=== PATIENT | female | born 1955 | race Caucasian/White ===

== ENCOUNTER → 2017-09-09 06:51 | Outpatient (CLI) | payer OTHER, SELFPAY ==
--- NOTE | 2017-09-09 14:52 | PFTCOMP ---
COMPLETE PULMONARY FUNCTION TEST INTERPRETATION Brief HPI: Patient is a 62 year old female, currently under the care of Maria Teresa Koehler, who presents to [facility] for complete pulmonary function tests secondary to diagnosis of wheezing. Respiratory therapist reports good effort and reproducible results. Interpretation: Forced expiration spirometry shows no large airways obstructive ventilatory defect with an FEV1 of 116 % predicted. There is no significant bronchodilator response by ATS criteria. Spirograms are of good quality and plateau normally. The respiratory flow volume loop shows a normal pattern. Lung volumes by body plethysmography show an elevated total lung capacity at 6.12 L, 120 % predicted. All other lung volumes are increased symmetrically. Diffusion capacity by carbon monoxide is normal at 86 % predicted. The airway resistance is normal. No previous pulmonary function tests were available for review. Impression: These pulmonary function tests are grossly within normal limits. There is mild physiologic hyperinflation, without any signs of obstruction noted.
== END ==
PROVIDERS: Family Provider Family Medicine; PCP Family Medicine; Visit Provider Nurse Practitioner Acute Care
DX: R06.2 Wheezing (principal)
CPT/HCPCS: 94060; 94726; 94729

== ENCOUNTER → 2018-05-28 08:02 | Outpatient (CLI) | payer OTHER, SELFPAY ==
--- NOTE | 2018-05-28 08:05 | BI_ITS ---
MAMMOGRAPHY - BILATERAL SCREENING REASON FOR EXAM: Female, 63 years old. Routine annual screening examination. PERTINENT HISTORY: Aunt with breast cancer. TECHNIQUE: Digital bilateral breast juvenal (3D mammographic acquisition) in the CC and MLO projections. 2-D mediolateral oblique (MLO) and craniocaudad (CC) views of both breasts were obtained. CAD: Full Field Digital Mammography with Computer Added Detection was performed. COMPARISON: Comparison is made with prior study dated November 28, 2016 and July 06, 2015. FINDINGS: Breast Composition: There are scattered areas of fibroglandular density. There are no dominant masses or suspicious calcifications. No other significant abnormalities are identified. There has been no significant change since the prior study. BI/SCREENING MAMM (CAD), BILAT IMPRESSION: Stable bilateral screening mammogram. Yearly follow-up mammogram recommended. (A) ASSESSMENT CATEGORY: BIRADS Category 1: Negative. A letter regarding these results will be sent to the patient by the facility within 30 days. Approximately 10% of breast cancers are not detected by mammography. A normal mammogram should not delay biopsy of a clinically suspicious abnormality. [id number] Electronically Signed: Juan Pablo Lucas MD at 11:20 EST Tel [phone], Service support ,
== END ==
PROVIDERS: Family Provider Family Medicine; PCP Family Medicine; Visit Provider Nurse Practitioner Adult Health
DX: Z12.31 Encounter for screening mammogram for malignant neoplasm of breast (principal)
CPT/HCPCS: 77063; 77067

== ENCOUNTER → 2018-11-06 | Outpatient (CLI) | payer OTHER, SELFPAY ==
[2018-11-05 16:49] VITALS: BMI 24.7
--- NOTE | 2018-11-06 08:14 | RAD_ITS ---
STUDY: X-RAY - CERVICAL SPINE REASON FOR EXAM: Female, 63 years old. Chronic neck pain. TECHNIQUE: 4 view(s) of the cervical spine were obtained. COMPARISON: None FINDINGS: There are degenerative changes of the anterior atlantoaxial articulation. Normal odontoid process. Normal cervical lordosis. . There is multi-level degenerative disc disease with multilevel disc space narrowing. There is no evidence of acute fracture or loss of vertebral axial height. There is maintenance of normal alignment. The soft tissue structures are unremarkable. RAD/Cerv Spine 2 or 3 Views IMPRESSION: Degenerative changes of the cervical spine. Electronically Signed: James Guerrero DO at 23:22 EDT Tel [phone], Service support ,
--- NOTE | 2018-11-06 08:14 | RAD_ITS ---
STUDY: X-RAY - LUMBAR SPINE REASON FOR EXAM: Female, 63 years old. Degenerative disc disease. TECHNIQUE: 5 view(s) of the lumbar spine were obtained. COMPARISON: None FINDINGS: Normal lumbar lordosis. There is no substantial scoliosis. There is a normal alignment of the vertebrae. There is multilevel endplate spondylosis of the lumbar vertebrae. There is multi-level degenerative disc disease with multi-level disc space narrowing. There is no acute fracture, dislocation or destructive osseous pathology. There is no demonstrated spondylolysis of the pars interarticulares. There is atherosclerotic calcification of the abdominal aorta without a demonstrated aneurysm. RAD/L/S Spine Min 4 Views IMPRESSION: Degenerative changes of the spine, as detailed above. Electronically Signed: James Guerrero DO at 23:23 EDT Tel [phone], Service support ,
== END | disposition home or self-care (01) ==
LOC: RAD 08:14
PROVIDERS: Family Provider Family Medicine; PCP Family Medicine; Referring Provider Chiropractor; Visit Provider Chiropractor
DX: M99.01 Segmental and somatic dysfunction of cervical region (principal); M99.03 Segmental and somatic dysfunction of lumbar region
CPT/HCPCS: 72040; 72110

== ENCOUNTER → 2019-04-23 09:05 | Outpatient (CLI) | payer OTHER, SELFPAY ==
[2018-11-25 08:10] VITALS: BMI 24.7
[2019-04-23 10:30] LABS: Erythrocyte Sedimentation Rate 12 mm/hr (0-30)
[2019-04-23 10:32] LABS: Absolute Lymphocyte Count 1.17 X10^3/uL (0.83-4.51); Basophil# 0.03 X10^3/uL; Basophil% 0.6 % (0-1); Eosinophil# 0.09 X10^3/uL; Eosinophils% 1.9 % (0-5); Hemoglobin 13.7 g/dL (12.0-15.0); Lymphocyte # 1.17 X10^3/ul (4.0); Lymphocyte % 25.2 % (19-41); Mean Corp Hgb Conc 31.9 g/dL (32-36); Mean Corpuscular Hgb 30.3 pg (27.0-32.0); Mean Corpuscular Volume 95.1 fL (81-99); Mean Platelet Vol. 9.4 fl (6.2-12.0); Monocyte# 0.37 X10^3/uL; NRBC Flagged by Analyzer 0 % (0-5); Neutrophil # 2.98 X10^3/uL (2.7-7.7); Neutrophil % 64.1 % (47-70); Platelet Count 253 K/mm3 (150-450); RBC Distribution Width CV 12.2 % (11.6-14.6); RBC Distribution Width SD 42.5 fl (35.1-43.9); Red Blood Count 4.52 M/mm3 (4.2-5.4); White Blood Count 4.7 K/mm3 (4.4-11.0)
[2019-04-23 10:45] LABS: AST(SGOT) 26 U/L (15-37); Alanine Aminotransfer ALT/SGPT 30 U/L (13-56); Albumin, Serum 3.7 g/dL (3.2-5.0); Alkaline Phosphatase 77 U/L (45-117); Anion Gap 7 (5-15); BUN 12 mg/dL (7-18); BUN/Creat Ratio 13.1 RATIO (10-20); CRP 3.25 mg/L (0.0-3.0); Chloride 107 mmol/L (98-107); Creatinine, Serum 0.92 mg/dL (0.55-1.02); EST Glomerular Filtration Rate 66 mL/min (>60); Est Glom Filt Rate - Afr Amer 80 mL/min (>60); Ferritin 46 ng/mL (8-252); Globulin 3.7 g/dL (2.2-4.2); Glucose 72 mg/dL (74-106); Iron 101 ug/dL (50-170); Protein, Total 7.4 g/dL (6.4-8.2); Sodium Level 142 mmol/L (136-145); Thyroid Stim Hormone (TSH) 2.87 uIU/mL (0.358-3.74)
[2019-04-23 11:07] LABS: Vitamin B12 482 pg/mL (211-911); Vitamin D,25 Hydroxy 35.5 ng/mL (29.95-100.01)
[2019-04-27 14:30] LABS: ANTINUCLEAR ANTIBODIES DIRECT Negative (Negative)
== END ==
PROVIDERS: Family Provider Family Medicine; PCP Family Medicine; Referring Provider Family Medicine; Visit Provider Family Medicine
DX: G62.9 Polyneuropathy, unspecified (principal)
CPT/HCPCS: 36415; 80053; 82306; 82607; 82728; 82746; 83540; 84443; 85025; 85652; 86038; 86140

== ENCOUNTER → 2020-02-01 16:23 | Outpatient (CLI) | payer OTHER, SELFPAY ==
[2020-01-06 16:38] VITALS: BMI 24.7
--- NOTE | 2020-02-01 16:26 | RAD_ITS ---
STUDY: X-RAY - LEFT SHOULDER REASON FOR EXAM: Female, 64 years old. shoulder pain, no injury, pain with movement TECHNIQUE: 4 view(s) of the shoulder. COMPARISON: None. FINDINGS: Normal glenohumeral articulation. Normal acromioclavicular joint. Normal acromion. Normal humeral head and visualized proximal humerus. The soft tissue structures are unremarkable. Normal visualized pulmonary apex. RAD/Shoulder min 2 Views IMPRESSION: Normal x-ray examination of the shoulder. Electronically Signed: Michael Silva MD at 23:55 EDT , Service support ,
--- NOTE | 2020-02-01 16:30 | RAD_ITS ---
STUDY: X-RAY - RIGHT SHOULDER REASON FOR EXAM: Female, 64 years old. shoulder pain, no injury TECHNIQUE: 4 view(s) of the shoulder. COMPARISON: None. FINDINGS: Normal glenohumeral articulation. Normal acromioclavicular joint. Normal acromion. Normal humeral head and visualized proximal humerus. The soft tissue structures are unremarkable. Normal visualized pulmonary apex. RAD/Shoulder min 2 Views IMPRESSION: Normal x-ray examination of the shoulder. Electronically Signed: Michael Silva MD at 23:56 EDT , Service support ,
== END ==
PROVIDERS: PCP Family Medicine; Referring Provider Nurse Practitioner Family; Visit Provider Nurse Practitioner Family
DX: M25.512 Pain in left shoulder (principal); M25.511 Pain in right shoulder
CPT/HCPCS: 73030

== ENCOUNTER → 2020-02-17 | Outpatient (CLI) | payer OTHER, SELFPAY ==
[2020-01-06 16:38] VITALS: BMI 24.7
== END | disposition home or self-care (01) ==
LOC: MTDU 10:17
PROVIDERS: PCP Family Medicine; Referring Provider Family Medicine; Visit Provider Family Medicine
DX: Z20.828 Contact with and (suspected) exposure to other viral communicable diseases (principal)
CPT/HCPCS: 87635; 94799; U0003

== ENCOUNTER → 2020-03-02 09:33 | Outpatient (CLI) | payer OTHER, SELFPAY ==
[2020-01-06 16:38] VITALS: BMI 24.7
[2020-03-02 10:30] LABS: Anion Gap 3 (5-15); BUN 11 mg/dL (7-18); BUN/Creat Ratio 15.2 RATIO (10-20); Calcium,Total 9.3 mg/dL (8.5-10.1); Chloride 108 mmol/L (98-107); Cholesterol 191 mg/dL (200); Creatinine, Serum 0.73 mg/dL (0.55-1.02); EST Glomerular Filtration Rate 86 mL/min (>60); Est Glom Filt Rate - Afr Amer 104 mL/min (>60); Glucose 82 mg/dL (74-106); High Density Lipoprotein 79 mg/dL; Sodium Level 140 mmol/L (136-145); Triglycerides 86 mg/dL; Very Low Density Lipoprotein 17 mg/dL (5-40)
== END ==
PROVIDERS: PCP Family Medicine; Referring Provider Family Medicine; Visit Provider Family Medicine
DX: Z00.00 Encounter for general adult medical examination without abnormal findings (principal)
CPT/HCPCS: 36415; 80048; 80061; 82306

== ENCOUNTER → 2020-03-29 16:29 | Outpatient (CLI) | payer OTHER, SELFPAY ==
[2020-01-06 16:38] VITALS: BMI 24.7
--- NOTE | 2020-03-29 16:31 | BI_ITS ---
MAMMOGRAPHY - BILATERAL SCREENING REASON FOR EXAM: Female, 64 years old. Routine annual screening examination. PERTINENT HISTORY: Aunt with breast cancer. TECHNIQUE: Digital bilateral breast jason (3D mammographic acquisition) in the CC and MLO projections. 2-D mediolateral oblique (MLO) and craniocaudad (CC) views of both breasts were obtained. CAD: Full Field Digital Mammography with Computer Added Detection was performed. COMPARISON: Comparison is made with prior study dated 05/28/2018 and 11/28/2016. FINDINGS: Breast Composition: There are scattered areas of fibroglandular density. There are no dominant masses or suspicious calcifications. No other significant abnormalities are identified. There has been no significant change since the prior study. BI/SCREEN MAMM (CAD) W/JASON BILAT IMPRESSION: Stable bilateral screening mammogram. Yearly follow-up mammogram recommended. (A) ASSESSMENT CATEGORY: BIRADS Category 1: Negative. A letter regarding these results will be sent to the patient by the facility within 30 days. Approximately 10% of breast cancers are not detected by mammography. A normal mammogram should not delay biopsy of a clinically suspicious abnormality. [id number] Electronically Signed: Juan Pablo Lucas, at 8:02 EDT , Service support ,
== END ==
PROVIDERS: PCP Family Medicine; Referring Provider Family Medicine; Visit Provider Family Medicine
DX: Z12.31 Encounter for screening mammogram for malignant neoplasm of breast (principal)
CPT/HCPCS: 77063; 77067

== ENCOUNTER → 2020-08-04 | Outpatient (CLI) | payer OTHER, SELFPAY ==
[2020-01-06 16:38] VITALS: BMI 24.7
== END | disposition home or self-care (01) ==
PROVIDERS: PCP Family Medicine; Referring Provider Family Medicine; Visit Provider Family Medicine
DX: U07.1 COVID-19 (principal)
CPT/HCPCS: 87635; U0005; U0003

== ENCOUNTER → 2021-04-12 09:08 | Outpatient (CLI) | payer OTHER, SELFPAY ==
[2021-04-12 10:03] LABS: Hemoglobin 13.3 g/dL (12.0-15.0); Mean Corp Hgb Conc 32.4 g/dL (32-36); Mean Corpuscular Hgb 30.9 pg (27.0-32.0); Mean Corpuscular Volume 95.3 fL (81-99); Mean Platelet Vol. 9.5 fl (6.2-12.0); Platelet Count 268 K/mm3 (150-450); RBC Distribution Width CV 12.4 % (11.6-14.6); RBC Distribution Width SD 43.2 fl (35.1-43.9); White Blood Count 5.7 K/mm3 (4.4-11.0)
[2021-04-12 10:43] LABS: ALB/GLOB Ratio 0.8 RATIO (0.9-2.4); AST(SGOT) 24 U/L (15-37); Alanine Aminotransfer ALT/SGPT 25 U/L (13-56); Albumin, Serum 3.4 g/dL (3.2-5.0); Alkaline Phosphatase 74 U/L (45-117); Anion Gap 3 (5-15); BUN 16 mg/dL (7-18); BUN/Creat Ratio 21.6 RATIO (10-20); Calcium,Total 9.2 mg/dL (8.5-10.1); Chloride 107 mmol/L (98-107); Cholesterol 213 mg/dL (200); Creatinine, Serum 0.74 mg/dL (0.55-1.02); EST Glomerular Filtration Rate 84 mL/min (>60); Est Glom Filt Rate - Afr Amer 101 mL/min (>60); Globulin 4.1 g/dL (2.2-4.2); Glucose 84 mg/dL (74-106); High Density Lipoprotein 76 mg/dL; Potassium 4.4 mmol/L (3.5-5.1); Protein, Total 7.5 g/dL (6.4-8.2); Rheumatoid Factor < 10.0 IU/mL (<15); Sodium Level 138 mmol/L (136-145); Triglycerides 66 mg/dL; Very Low Density Lipoprotein 13 mg/dL (5-40)
[2021-04-12 14:03] LABS: Erythrocyte Sedimentation Rate 13 mm/hr (0-30)
[2021-04-16 16:50] LABS: ANTINUCLEAR ANTIBODIES DIRECT Negative (Negative)
== END ==
PROVIDERS: PCP Family Medicine; Referring Provider Family Medicine; Visit Provider Family Medicine
DX: M13.0 Polyarthritis, unspecified (principal); Z13.220 Encounter for screening for lipoid disorders
CPT/HCPCS: 36415; 80053; 80061; 85027; 85652; 86038; 86140; 86431

== ENCOUNTER → 2021-04-25 15:33 | Outpatient (CLI) | payer OTHER, SELFPAY ==
--- NOTE | 2021-04-25 15:37 | BI_ITS ---
MAMMOGRAPHY - BILATERAL SCREENING 3-D TOMOSYNTHESIS REASON FOR EXAM: Female, 66 years old. SCREENING PERTINENT HISTORY: No significant family history. TECHNIQUE: 2-D mammograms and 3-D Tomosynthesis of the breast (s) were performed. CAD was performed. COMPARISON: 03/29/2020 FINDINGS: The breast composition is composed of scattered fibroglandular density. Scattered benign calcifications are seen. No dense spiculated masses or suspicious microcalcifications are identified. No architectural distortion is identified. There is no skin thickening or retraction. There has been no significant change since the prior study. BI/SCRN MAMM (CAD)W/JASON BILAT IMPRESSION: No mammographic signs of malignancy. Routine yearly mammograms recommended. ASSESSMENT CATEGORY: BIRADS Category 1: Negative. A letter regarding these results will be sent to the patient by the facility within 30 days. FOLLOW UP RECOMMENDATION: Yearly follow up mammogram recommended. (A) Approximately 10% of breast cancers are not detected by mammography. A normal mammogram should not delay biopsy of a clinically suspicious abnormality. Electronically Signed: Melvin Flores MD at 17:30 EDT Tel , Service support ,
== END ==
PROVIDERS: PCP Family Medicine; Referring Provider Family Medicine; Visit Provider Family Medicine
DX: Z12.31 Encounter for screening mammogram for malignant neoplasm of breast (principal)
CPT/HCPCS: 77063; 77067

== ENCOUNTER → 2021-05-03 | Outpatient (CLI) | payer OTHER, SELFPAY ==
[2021-05-08 16:56] LABS: HPV APTIMA, High Risk Negative (Negative); HPV Reflexed? YES, CHARGE PATIENT
== END | disposition home or self-care (01) ==
PROVIDERS: PCP Family Medicine; Visit Provider Nurse Practitioner Family
DX: Z12.4 Encounter for screening for malignant neoplasm of cervix (principal)
CPT/HCPCS: 87624; 88175; G0145

== ENCOUNTER 2021-10-19 10:08 | Outpatient (CLI) | payer OTHER, SELFPAY ==
--- NOTE | 2021-10-19 10:12 | RAD_ITS ---
STUDY: X-RAY - LUMBAR SPINE REASON FOR EXAM: Female, 66 years old. LUMBAGO WITH SCIATICA TECHNIQUE: 5 view(s) of the lumbar spine were obtained including oblique views. COMPARISON: Comparison is made with prior study dated 08/03/2020. FINDINGS: There is straightening of the normal lumbar lordosis. There is a minimal levoscoliosis of the lumbar spine. Minimal anterior listhesis of L4 on L5. Facet joint osteoarthritis. Normal vertebral bodies and endplates. There is multi-level degenerative disc disease with multi-level disc space narrowing. The soft tissue structures are unremarkable. RAD/L/S Spine Min 4 Views IMPRESSION: Degenerative changes of the spine, as detailed above. Minimal anterior listhesis of L4 on L5. Facet joint osteoarthritis. Electronically Signed: Juan Pablo Lucas MD at 13:04 EDT ,
== END 2021-10-19 23:59 | disposition home or self-care (01) ==
LOC: MTRAD 10:10
PROVIDERS: PCP Family Medicine; Referring Provider Family Medicine; Visit Provider Family Medicine
DX: M54.42 Lumbago with sciatica, left side (principal)
CPT/HCPCS: 72110

== ENCOUNTER → 2022-03-28 | Outpatient (CLI) | payer MEDICARE, OTHER, SELFPAY ==
--- NOTE | 2022-03-28 14:36 | RAD_ITS ---
STUDY: X-RAY - CERVICAL SPINE REASON FOR EXAM: Female, 66 years old. Pain. Right arm numbness and tingling. TECHNIQUE: 8 view(s) of the cervical spine were obtained. COMPARISON: 11/06/2018 radiographs. FINDINGS: No apparent fracture or aggressive osseous lesions. Multilevel facet greater than disc degeneration. With flexion there is evidence of mechanical instability with mild, 2 mm, anterolisthesis of C2 on C3, C3 on C4, and C4 on C5 all of which reduced to anatomic alignment with extension. In neutral position, there remains mild anterolisthesis of C2 on C3 but the other listhesis is also resolved. Prevertebral soft tissues and epiglottis unremarkable. Osteophytes cause at least moderate and probably severe narrowing of the right foramen at C5-6 and C6-7. Less prominent foraminal narrowing at other levels. RAD/Cerv Spine Obl/Flex/Ext Comp IMPRESSION: Facet greater than disc degeneration with multilevel mild mechanical instability. At least moderate and possibly high-grade narrowing of the left foramen at C5-6 and C6-7. Electronically Signed: Michael Lora MD at 6:01 EDT Reading Location ID and State: [facility] / [place] Tel , Service support ,
== END | disposition home or self-care (01) ==
LOC: MTRAD 14:33
PROVIDERS: PCP Family Medicine; Referring Provider Family Medicine; Visit Provider Family Medicine
DX: M50.90 Cervical disc disorder, unspecified, unspecified cervical region (principal)
CPT/HCPCS: 72052

== ENCOUNTER → 2022-04-17 | Outpatient (CLI) | payer MEDICARE, OTHER, SELFPAY ==
--- NOTE | 2022-04-17 12:11 | MRI_ITS ---
STUDY: MRI LUMBAR SPINE WITHOUT CONTRAST REASON FOR EXAM: Female, 67 years old. RADICULOPATHY TECHNIQUE: Standardized fat and water weighted pulse sequences were obtained in the sagittal and axial planes. COMPARISON: None FINDINGS: No evidence for acute fracture or subluxation. Small interosseous hemangioma within the L4 vertebral body. T12-L1: Normal endplates. Normal disc height, desiccation and normal morphology. Normal bilateral facet joints. Normal central canal and bilateral lateral recesses. Normal bilateral intervertebral neural foramina. Normal lumbar lordosis. There is no substantial scoliosis. Normal conus medullaris that terminates at T12-L1 L1-2: Normal endplates. Normal disc height, desiccation and minor annular bulge. Morphology. Normal bilateral facet joints. Normal central canal and bilateral lateral recesses. Normal bilateral intervertebral neural foramina. L2-3: Normal endplates. Normal disc height, desiccation mild annular bulge.. Normal bilateral facet joints. Normal central canal and bilateral lateral recesses. Mild bilateral neuroforaminal encroachment. L3-4: Normal endplates. Normal disc height, desiccation mild annular bulge.. Mild facet arthropathy and thickening of ligamenta flava. Normal central canal and bilateral lateral recesses. Moderate bilateral neuroforaminal stenosis. L4-5: Normal endplates. Normal disc height, desiccation and moderate annular bulge. Bilateral facet arthropathy and thickening of ligamenta flava slightly more pronounced on the left. Normal central canal. Mild left lateral recess stenosis. Mild right neuroforaminal encroachment and moderate left neuroforaminal stenosis. L5-S1: Normal endplates. Normal disc height, desiccation and mild annular bulge.. Bilateral facet arthropathy.. Normal central canal and bilateral lateral recesses. Severe bilateral neuroforaminal stenosis Normal visualized sacral ala. Normal visualized paraspinous soft tissue structures. MRI/Spine Lumbar (Routine) IMPRESSION: No evidence for acute fracture or other significant bony pathology. Multilevel disc degeneration and spinal stenosis secondary to disc disease and bony hypertrophy most severe at L5-S1 bilaterally and on the left at L4-5 Electronically Signed: Philippe Gallego MD at 20:29 EDT ,
== END | disposition home or self-care (01) ==
LOC: MRI 12:06
PROVIDERS: PCP Family Medicine; Referring Provider Family Medicine; Visit Provider Family Medicine
DX: M54.42 Lumbago with sciatica, left side (principal)
CPT/HCPCS: 72148

== ENCOUNTER 2022-04-25 11:00 | Outpatient (RCR) | payer MEDICARE, OTHER, SELFPAY ==
--- NOTE | 2022-04-04 13:28 | HP.PTEVAL_ITS ---
Patient's Visit Information ROBERT MACIAS is a 67 year old F referred to Physical Therapy by Dr. Aleksey Kruger MD with a diagnosis of cervical instability. Date of Evaluation: 04/04/22 Physical Therapist: Manfred Layne DPT, OCS, CSCS - Visit Plan Frequency: 2x /Week Duration: 4-6 Weeks Plan: 2x/week for 4-6 weeks for ... 1. STM to pericervical area(UT and rhomboids). 2. manaul cervical traction to mechanical if otlerated. May do ext mobs and neck stretches to tolerance. Monitor tolerance to Home cerv ret/ext.(monitor cervical ext and R rotation and arm symptoms with Pat ex). 3. postural correction and strengthening cervical and scapula. - Subjective I have spurs and Cervical DDD. Neck has hurt for years on and off. It has gotten tip over the last three months R arm from scap to fingers goes numb and has for 3 months. Feels pins and needles and worse with certain turns of neck. Standing too long makes it worse and letting it hang. Has L LBP and leg pain which she will have an MRI for. pain is 8/10 in neck and upper arm if she stand or turns head. Worse if she turns head to the right. R arm does not feel weak but is numb and tingly. Leg and LBP keep her up at night but not neck and arm. Wants MRI before treats LB. Retired in 2020 from [employer]. Basic ADLs are interrupted as she cannot do anything for more than a couple minutes. Doing cross body arm stretch adn tricep stretch, pendulum and they do not have not helped pain. No regular exercises. Watches [employer] you 2-3x/week and she chases hin around and has hard time keeping up. Has TENs unit but not used on neck yet. - Pain R neck and arm Pain Intensity (Out of 10): 8 Pain Intensity Range: 0, 8 Comment: 8 neck and arm 4/10 - Objective cervical 70 rotation L 45 right rotation, extension 35 and painful B neck. Posture is forward head and elevated scap. Very tense and tender through posterior cervical muscles. UE AROM WFL. reflexes 2/3 bi and triceps. Sensation UE WNL to gross light touch. Strength UE 4/5 without myotomal problems. Repeated motion start 5/10 neck and arm 5/10 to fingers. Protrusion: neck 9/10, arm 9/10W at first but lessens after . repeated flexion: W during movement and more numb arm. Neck W 9/10, arm worse 9/10. repeated retraction: Worse during, Neck 9/10, 9/10. Repeated ret/ext : deviates R slightly, PDM, neck 9/10, arm shoulders terrible. - VAT, - alar lig test - Balance/Special Test Scores Oswestry Neck Score: 25 - Goals Goal 1:: I appropriate posture and ex to manage neck pain Goal Time Frame: 4-6 Weeks Goal 2:: Neck pain 2/10 at worst and arm symptoms abolished Goal Time Frame: 4-6 Weeks Goal 3:: Pt feel 75% better in overall pain and activity Goal Time Frame: 4-6 Weeks Goal 4:: Neck oswestry score 10 or better Goal Time Frame: 4-6 Weeks - Rehabilitation Potential Physical Therapy Diagnosis: cervical degeneration and instability. Rehabilitation Potential: Good - Anticipated Interventions Patient/Client Instruction: Educate patient on: Condition, Plan of Care For the Purpose of:: To decrease pain, To improve muscle performance and motor function, To increase tolerance to activity/condition/position, To improve ability of physical actions for home/community/work/leisure, To improve gait and locomotor functions Therapeutic Exercise to Include: Strength training, Flexibilty training, Passive ROM, Active ROM, Scapular Strength/Stabilization For the Purpose of:: To decrease pain, To increase ROM, To improve muscle performance and motor function, To increase tolerance to activity/condition/position Manual Therapy Techniques to Include: Mobilization, Soft tissue mobilization For the Purpose of:: To decrease pain, To increase ROM, To improve nutrient delivery to tissue, To increase tolerance to activity/condition/position Intermittent cervical traction: Yes For the Purpose of:: To increase ROM Thank you for the opportunity to evaluate your patient. For Medicare and Medicare HMO plans, please review the plan of care and approve it. It will need to be FAXED BACK to us at [phone] for Medicare purposes. For Medicare only, by signing this I certify the plan of care. Please let me know if there are questions or concerns regarding this plan of care. Physician Signature: Date:
--- NOTE | 2022-04-25 11:51 | HP.PTDCSUM_ITS ---
It has been my pleasure to treat ROBERT MACIAS referred by Dr. Aleksey Kruger MD, with the diagnosis of cervical instability for a total of 7 visit(s). Discharge Date: 04/25/22 Please see the following information for a summary of their discharge status. Subjective: Neck still hurting and not improving. DTR helps but only for half hour. Afraid to do things recreationally. Pain 5/10 at most points. Ex is happening it just doesn't help. R neck and arm Pain Intensity (Out of 10): 8 NEck Pain Intensity (Out of 10): 5 % Improvement: 0 Objective/Function: 65 B rotation neck adn 55 extension, improved but pain has not followed. still tight and tender UT and lev scap B. Posture is improved but not helping pain. Goal 1:: I appropriate posture and ex to manage neck pain Goal Progress: Not Progressing Goal 2:: Neck pain 2/10 at worst and arm symptoms abolished Goal Progress: Not Progressing Goal 3:: Pt feel 75% better in overall pain and activity Goal Progress: Not Progressing Goal 4:: Neck oswestry score 10 or better Goal Progress: Not Progressing Plan: Appropriately, pt wishes to see doctor to weigh other options. Further therapy for neck and shoulder strength and aggressive stretch should be con sidered if no other good options. Discharge Comments: Back to doctor to weigh other options, therapy not having desired effect. If there are questions or concerns regarding this patient's physical therapy, please feel free to call me at [phone]. Thank you for the referral of this patient. Sincerely, Manfred Layne, DPT, OCS, CSCS Balance/Gait/Functional tests - Balance/Special Test Scores Oswestry Neck Score: 20
== END 2022-04-25 12:53 | disposition home or self-care (01) ==
LOC: PT 11:00
PROVIDERS: PCP Family Medicine; Referring Provider Family Medicine; Visit Provider Family Medicine
DX: M53.2X2 Spinal instabilities, cervical region (principal)
CPT/HCPCS: 97012; 97110; 97140; 97162; 97164

== ENCOUNTER → 2022-06-19 | Outpatient (CLI) | payer MEDICARE, OTHER, SELFPAY ==
[2022-06-19 17:53] LABS: International Normalized Ratio 1.1; Partial Thromboplast Time 30.9 Seconds (24.1-36.2); Prothrombin Time (Protime)PT. 13.4 SECONDS (11.7-14.9)
[2022-06-19 17:57] LABS: Hematocrit 41.7 % (37-47); Hemoglobin 13.3 g/dL (12.0-15.0); Mean Corp Hgb Conc 31.9 g/dL (32-36); Mean Corpuscular Volume 94.1 fL (81-99); Mean Platelet Vol. 9.7 fl (6.2-12.0); Platelet Count 281 K/mm3 (150-450); RBC Distribution Width CV 12.6 % (11.6-14.6); RBC Distribution Width SD 43.7 fl (35.1-43.9); Red Blood Count 4.43 M/mm3 (4.2-5.4); White Blood Count 5.7 K/mm3 (4.4-11.0)
[2022-06-19 18:18] LABS: Cholesterol 225 mg/dL (200); High Density Lipoprotein 74 mg/dL; Triglycerides 98 mg/dL; Very Low Density Lipoprotein 20 mg/dL (5-40)
== END | disposition home or self-care (01) ==
LOC: MFPLAB 16:24
PROVIDERS: PCP Family Medicine; Referring Provider Family Medicine; Visit Provider Family Medicine
DX: Z01.818 Encounter for other preprocedural examination (principal)
CPT/HCPCS: 36415; 80061; 85027; 85610; 85730

== ENCOUNTER → 2022-06-27 | Outpatient (CLI) | payer MEDICARE, OTHER, SELFPAY ==
--- NOTE | 2022-06-27 10:40 | BD_ITS ---
STUDY: DUAL ENERGY X-RAY ABSORPTIOMETRY / DXA REASON FOR EXAM: Female, 67 years old. M51.26 TECHNIQUE: Bone Mineral Density (BMD) measurements of lumbar spine and bilateral hips were obtained. COMPARISON: None. FINDINGS: Lumbar Spine (L1-L4): g/cm2 (0.719) / T-score (-2.7) / Z-score (-1.0) Findings are suggestive of osteoporosis with a high fracture risk. Left Femur Total: g/cm2 (0.606) / T-score (-2.8) / Z-score (-1.5) Left Femoral Neck: g/cm2 (0.488) / T-score (-3.3) / Z-score (-1.7) Right Femur Total: g/cm2 (0.638) / T-score (-2.5) / Z-score (-1.3) Right Femoral Neck: g/cm2 (0.559) / T-score (-2.6) / Z-score (-1.1) BD/Dexa Bone Density Study IMPRESSION: The patient is considered osteoporotic as outlined below according to World Thor Organization (WHO) criteria with a high fracture risk. Reference Information: The T-score is the number of standard deviations above or below the standard which is normal for young adults at their peak bone mineral density. The World Health Organization (WHO) interprets the T-scores as follows: Above -1 Normal bone density Between -1 and -2.5 Osteopenia Equal to / or below -2.5 Osteoporosis As a practical clinical guideline, osteopenia may be graded as follows: Mild -1 through -1.5 Moderate -1.6 through -2.0 Severe -2.1 through -2.4 The Z-score is the number of standard deviations above or below age-matched controls. A Z-score of less than -1.5 would be considered abnormal. References: 1. NIH Osteoporosis and Related Bone Diseases www osteo.org 2. International Society for Clinical Densitometry www iscd.org 3. National Osteoporosis Foundation www nof.org Electronically Signed: Juan Pablo Lucas MD at 15:11 EST ,
== END | disposition home or self-care (01) ==
LOC: OPBD 10:31
PROVIDERS: PCP Family Medicine; Referring Provider Orthopaedic Surgery; Visit Provider Orthopaedic Surgery
DX: M51.26 Other intervertebral disc displacement, lumbar region (principal); M81.0 Age-related osteoporosis without current pathological fracture
CPT/HCPCS: 77080

== ENCOUNTER → 2022-07-01 | Outpatient (CLI) | payer MEDICARE, OTHER, SELFPAY ==
[2022-07-01 15:18] LABS: Anion Gap 5 (5-15); BUN 15 mg/dL (7-18); BUN/Creat Ratio 16.2 RATIO (10-20); Calcium,Total 9.1 mg/dL (8.5-10.1); Chloride 107 mmol/L (98-107); Creatinine, Serum 0.93 mg/dL (0.55-1.02); EST Glomerular Filtration Rate 64 mL/min (>60); Est Glom Filt Rate - Afr Amer 78 mL/min (>60); Glucose 85 mg/dL (74-106); Magnesium 2.2 mg/dL (1.6-2.6); Sodium Level 140 mmol/L (136-145)
[2022-07-01 15:21] LABS: Vitamin D,25 Hydroxy 39.9 ng/mL
[2022-07-02 08:13] LABS: PTHIN 41.2 pg/mL (18.4-80.1)
== END | disposition home or self-care (01) ==
PROVIDERS: PCP Family Medicine; Referring Provider Family Medicine; Visit Provider Family Medicine
DX: M81.0 Age-related osteoporosis without current pathological fracture (principal)
CPT/HCPCS: 36415; 80048; 82306; 82330; 83735; 83970

== ENCOUNTER 2022-09-04 10:30 | Outpatient (RCR) | payer MEDICARE, OTHER, SELFPAY ==
--- NOTE | 2022-08-01 10:55 | HP.PTEVAL_ITS ---
Patient's Visit Information ROBERT MACIAS is a 67 year old F referred to Physical Therapy by WILLOW KAUR with a diagnosis of L L5 S1 LAMINECTOMIES AND MICRODISCECTOMY.. Date of Evaluation: 08/01/22 Physical Therapist: Selam Mora, PT, Cert MDT - Visit Plan Frequency: 2-3x /Week Duration: 4-6 Weeks Plan: VERY ARTHRITIC JEOVANNY KNEES THAT NEED REPLACED. SEVERE OSTEOPOROSIS. POSTURE CORRECTION/STRENGTHENING, INSTRUCTION IN APPROPRIATE BODY MECHANICS AND ACTIVITY MODIFICATIONS. DLS STARTING WITH A NEUTRAL SPINE UNTIL AUG 22 2022 THEN PROGRESSING ROM TOLERATED. JEOVANNY LE ROM, STRETCHING AND STRENGTHENING. HEP INSTRUCTION. - Subjective Work/Leisure: RETIRED. Disability: NO. Present symptoms: LBP. L LE PAIN, NUMBNESS AND TINGLING. NO RIGHT LE SX'S. Present since: ABOUT A YEAR AGO. Pain Scale: WORST 5/10, LEAST 2/10. Currently: 2/10. Is it getting better, worse or staying the same: SLOWLY IMPROVING. Commenced as a result of: NO APPARENT REASON. Symptoms at onset: BACK AND L LE SX'S. Worse: STANDING TOO LONG, WALKING TOO LONG. Better: ICE, SITTING, LYING DOWN. Disturbed sleep: NO. Previous history/Previous treatment: CHRONIC LBP PAIN SINCE SINCE 2009. CHIROPRACTIC. JUAN C'S. MASSOTHERAPY. PT. Treatment this episode: 07/10/22 LUMBAR SURGERY. Coughing/sneezing/straining: POSITIVE. Gait: WALKING SLOWER THAN USUAL. WEARING BRACE INSTRUCTED WHEN WALKING BUT FEELS IT INTERFERES WITH HER NORMAL GAIT. Bowel or Bladder Dysfunction: NO. Accidents: NO. Unexplained weight loss: NO. Imaging: NO IMAGING SINCE SURGERY. MRI PRIOR TO SX. PMH/Recent major surgery: DDD, SPINAL STENOSIS, SEVERE OSTEOPOROSIS. VERY ARTHRITIC KNEES THAT NEED REPLACED. OTHER: PHYSICIAN RETRICTIONS: NO BENDING, LIFTING OR TWISTING FOR 3 MORE WEEKS. CONTINUE BRACE DRIVING AND WALKING FOR 3 MORE WEEKS PATIENT THINKS. PLOF: UNLIMITED INCLUDING SKIPPING, JUMPING AND CART WHEELS UNTIL ABOUT A YEAR AGO. PATIENT REPORTS SHE WAS VERY AGILE. - Objective Sitting/Standing Posture: POOR. SLOUCHED. FH. RSH'S. NO RELEVANT LATERAL SHIFT. Active Correction of posture: WORSE. Other Observations: SLOW INDEP GAIT INTO PT WITHOUT ANY ASSISTIVE DEVICE. DECREASED JEOVANNY STRIDE LENGTH. NO LOB. Sensory deficit: JEOVANNY LE LIGHT TOUCH SENSATION GROSSLY INTACT AND SYMMETRICAL DESPITE REPORTS OF LLE NUMBNESS. ROM deficit: JEOVANNY LE'S WFL OR EVEN HYPERMOBILE. Motor deficit: JEOVANNY LE WEAKNESS. HIPS 4-/5, KNEES 4/5 ANKLES 5/5. Dural Signs: NEGATIVE JEOVANNY LE'S. Lumbar ROM: NT. Core strength: POOR. Palpation: LUMBAR INCISION LOOKS GOOD AND WELL HEALED WITHOUT ANY SIGNS OF INFECTION. TREATMENT: NEUROMUSCULAR REEDUCATION - RETRAINING OF MVMT AND POSTURE FOR SITTING, LYING AND STANDING ACTIVITIES. - Balance/Special Test Scores Oswestry Low Back Score: 19 - Goals Goal 1:: DECREASE C/O LBP AND LLE SX'S. Goal Time Frame: 4-6 Weeks Goal 2:: IMPROVE LIFTING, WALKING, SITTING, STANDING, SOCIAL LIFE, TRAVEL AND WORK/HOMEMAKING FUNCTION Goal Time Frame: 4-6 Weeks Goal 3:: INSTRUCT IN PROPHYLAXIS - Anticipated Interventions Patient/Client Instruction: Educate patient on: Condition, Plan of Care, Risk Factors For the Purpose of:: To improve self management Therapeutic Exercise to Include: Strength training, Body mechanics, Postural training, Flexibilty training, Gait and locomotor training, Neuromotor deve lopment, Dynamic Lumbar Stabilization For the Purpose of:: To decrease pain, To increase ROM, To improve muscle performance and motor function, To increase tolerance to activi ty/condition/position, To improve ability of physical actions for home/community/work/leisure, To improve gait and locomotor functions Thank you for the opportunity to evaluate your patient. For Medicare and Medicare HMO plans, please review the plan of care and approve it. It will need to be FAXED BACK to us at [phone] for Medicare purposes. For Medicare only, by signing this I certify the plan of care. Please let me know if there are questions or concerns regarding this plan of care. Physician Signature: Da te:
--- NOTE | 2022-09-04 10:58 | HP.PTDCSUM ---
It has been my pleasure to treat ROBERT MACIAS referred by WILLOW KAUR, with the diagnosis of L L5 S1 LAMINECTOMIES AND MICRODISCECTOMY. for a total of 8 visit(s). Discharge Date: Please see the following information for a summary of their discharge status. Subjective: PATIENT REPORTS LESS TENDERNESS AROUND INCISION AND SHE HAS GAINED SOME STRENTH. PATIENT REPORTS YESTERDAY SHE WAS ABLE TO WALK 30 MINUTES WITHOUT PAIN - I WAS REALLY PLEASED. JUST SOME SORENESS IN LOW BACK AND HIPS AFTER WALK. LESS PAIN WITH HOUSEWORK TOO. I'M PLEASED WITH MY PROGRESS AND THE OUTCOME FROM SURGERY. STATES SHE NEEDS TO LEAVE A LITTLE EARLY TODAY. PATIENT STATES SHE FEELS SHE CAN CONTINUE EX ON HER OWN NOW. LOW BACK Pain Intensity (Out of 10): 3 L HIP Pain Intensity (Out of 10): 1 L THIGH Pain Intensity (Out of 10): 0 L LEG Pain Intensity (Out of 10): 0 % Improvement: 70 Objective/Function: PATIENT WAS SEEN TODAY FOR RE-ASSESSMENT OF PROGRESS TOWARD THE SET PT GOALS AND THE NEED FOR FURTHER PHYSICAL THERAPY VS READINESS FOR DISCHARGE. PATIENT HAS MADE GOOD PROGRESS WITH PT AND APPEARS APPROPRIATE FOR DISCHARGE AT THIS TIME. THIS PT RECOMMENDED TO PATIENT THAT SHE CHECK WITH SURGEONS OFFICE TO CHECK TO SEE IF SHE NEEDS TO SCHEDULE A FOLLOW UP WITH THEM SINCE SHE DOES NOT HAVE ANY PILI'TS PENDING. PATIENT IS AGREEABLE. UPON EXAM TODAY: Motor deficit: JEOVANNY HIPS 4-/5, KNEES 4/5, ANKLES 5/5. Dural Signs: NEGATIVE JEOVANNY LE'S. Lumbar mvmt loss: flex - NIL. ext - MOD. R SG - MOD. L SG - MOD. PATIENT DENIES ANY INCREASED SX'S WITH LUMBAR ROM TESTING ALL PLANES. Core strength: POOR. Palpation: INCISION LOOKS GOOD WITHOUT ANY SIGNS OF INFECTION. OTHER: FURTHER INSTRUCTION GIVEN TO PATIENT TODAY FOR PROPER BODY MECHANICS SPECIFIC TO HOUSHOLD CHORES SUCH VACUUMING, PICKING UP LAUNDRY BASKETS AND SWEEPING. PATIENT COMMUNICATED A GOOD UNDERSTANDING OF ALL INSTRUCTIONS AFTER GIVEN AND IS SOMEWHAT LIMITED IN PROPER MECHANICS FOR BACK DUE TO ARTHRITIC KNEES. Goal 1:: DECREASE C/O LBP AND LLE SX'S. Goal Progress: Goal Met Goal 2:: IMPROVE LIFTING, WALKING, SITTING, STANDING, SOCIAL LIFE, TRAVEL AND WORK/HOMEMAKING FUNCTION Goal Progress: Goal Met Goal 3:: INSTRUCT IN PROPHYLAXIS Goal Progress: Goal Met Plan: D/C. PATIENT AGREEABLE. If there are questions or concerns regarding this patient's physical therapy, please feel free to call me at [phone]. Thank you for the referral of this patient. Sincerely, Selam Mora, PT, Cert MDT Balance/Gait/Functional tests - Balance/Special Test Scores Oswestry Low Back Score: 11
== END 2022-09-04 19:00 | disposition home or self-care (01) ==
LOC: PT 10:30
PROVIDERS: PCP Family Medicine
DX: M51.26 Other intervertebral disc displacement, lumbar region (principal)
CPT/HCPCS: 97110; 97112; 97162; 97164

== ENCOUNTER → 2022-10-30 | Outpatient (CLI) | payer MEDICARE, OTHER, SELFPAY ==
[2022-10-30] MEDS: 0.9% NaCl Peripheral Flush Adult/Peds IV (13:04)
[2022-10-30 13:08] VITALS: BP 157/74; PULSE 63; RESP 16; TEMP 36.3
[2022-10-30] MEDS: Zoledronic Acid 5 MG 100 ML 300 MG IV (13:16)
[2022-10-30 13:43] VITALS: BP 164/78; PULSE 72
== END | disposition home or self-care (01) ==
LOC: MEDOUTP 12:55
PROVIDERS: PCP Family Medicine; Referring Provider Internal Medicine Endocrinology, Diabetes & Metabolism; Visit Provider Internal Medicine Endocrinology, Diabetes & Metabolism
DX: M81.0 Age-related osteoporosis without current pathological fracture (principal)
CPT/HCPCS: 96365; A4216; J3489

== ENCOUNTER → 2023-03-14 | Outpatient (CLI) | payer MEDICARE, OTHER, SELFPAY ==
--- NOTE | 2023-03-14 08:15 | BI_ITS ---
MAMMOGRAPHY - BILATERAL SCREENING REASON FOR EXAM: Female, 67 years old. Routine annual screening examination. PERTINENT HISTORY: Aunt with breast cancer. TECHNIQUE: Digital bilateral breast jason (3D mammographic acquisition) in the CC and MLO projections. 2-D mediolateral oblique (MLO) and craniocaudad (CC) views of both breasts were obtained. CAD: Full Field Digital Mammography with Computer Added Detection was performed. COMPARISON: Screening mammogram from 04/25/2021, 03/29/2020. FINDINGS: Breast Composition: There are scattered areas of fibroglandular density. There are no dominant masses or suspicious calcifications. No other significant abnormalities are identified. There has been no significant change since the prior study. BI/SCRN MAMM (CAD)W/JASON BILAT IMPRESSION: Stable bilateral screening mammogram. Yearly follow-up mammogram recommended. (A) ASSESSMENT CATEGORY: BIRADS Category 1: Negative. A letter regarding these results will be sent to the patient by the facility within 30 days. Approximately 10% of breast cancers are not detected by mammography. A normal mammogram should not delay biopsy of a clinically suspicious abnormality. Electronically Signed: Matthew Yates DO at 13:01 EDT ,
== END | disposition home or self-care (01) ==
PROVIDERS: PCP Family Medicine; Referring Provider Family Medicine; Visit Provider Family Medicine
DX: Z12.31 Encounter for screening mammogram for malignant neoplasm of breast (principal)
CPT/HCPCS: 77063; 77067

== ENCOUNTER → 2023-04-11 | Outpatient (CLI) | payer MEDICARE, OTHER, SELFPAY ==
--- NOTE | 2023-04-11 12:40 | RAD_ITS ---
STUDY: X-RAY - CERVICAL SPINE REASON FOR EXAM: Female, 68 years old. parasthesia TECHNIQUE: 7 view(s) of the cervical spine were obtained with flexion and extension views. COMPARISON: None FINDINGS: Normal anterior atlantoaxial articulation. Normal odontoid process. Normal cervical lordosis. There is multi-level endplate spondylosis. There is multi-level degenerative disc disease with multilevel disc space narrowing. There is multi-level osseous foraminal stenosis. Grossly normal flexion and extension with no subluxations seen. The soft tissue structures are unremarkable. There is no demonstrated fracture of the cervical spine. RAD/Cerv Spine Obl/Flex/Ext Comp IMPRESSION: Degenerative changes. No acute abnormalities seen. Electronically Signed: Denilson Melgoza MD at 23:00 EDT ,
--- NOTE | 2023-04-11 12:45 | RAD_ITS ---
STUDY: X-RAY CHEST REASON FOR EXAM: Female, 68 years old. parasthesia, rule ot mass TECHNIQUE: Frontal and lateral views of the chest. COMPARISON: 08/13/2017. FINDINGS: The lungs are clear and expanded. There is no demonstrated pleural abnormality. Normal size heart. Normal mediastinum and katrina. Normal visualized pulmonary arteries. Normal visualized aortic arch and descending thoracic aorta. There are diffuse degenerative changes of the visualized thoracic spine. Normal visualized ribs, clavicles, and shoulders. There is no demonstrated abnormality of the visualized soft tissue structures of the upper abdomen. RAD/Chest PA and Lateral IMPRESSION: No definite acute or significant abnormality seen. Electronically Signed: Denilson Melgoza MD at 23:01 EDT ,
== END | disposition home or self-care (01) ==
LOC: MTRAD 12:40
PROVIDERS: PCP Family Medicine; Referring Provider Family Medicine; Visit Provider Family Medicine
DX: R44.8 Other symptoms and signs involving general sensations and perceptions (principal)
CPT/HCPCS: 71046; 72052

== ENCOUNTER → 2023-07-17 | Outpatient (CLI) | payer MEDICARE, OTHER, SELFPAY ==
--- OUTSIDE RECORDS SUMMARY | 2023-07-17 10:53 | XMS RPT_ITS | CCD ---
Author Name Unknown Address [address] [facility] [address] [place] [id number] Organization [facility] Care Team Providers Care Car Dumper Operator Name Role Phone Eleanor Fierro Unavailable Unavail able Jeromy Kruger Unavailable Unavailabl e Medications Completed/Discontinued Medications Medication Drug Class(es) Dates Sig (Normalized) Sig (Original) aspirin 81 mg delayed release oral tablet (1 source) Platelet Aggregation Inhibitor, Nonsteroidal Anti-inflammatory Drug Aspirin 81 MG Ora l Tablet Delayed Release Refills: 0 Active bisacodyl 10 mg rectal suppository (1 source) Stimulant Laxative Dulcolax 10 M G Rectal Suppository Refills: 0 Active Colace CAPS (1 source) Colace CAPS Refills: 0 Active escitalopram 20 mg oral tablet (1 source) Serotonin Reuptake Inhibitor Lexapro 20 MG Oral Tablet Refills: 0 Active Linseed Oil (1 source) Flax Seed Oil CA PS Refills: 0 Active LORazepam 1 mg oral tablet (1 source) Benzodiazepine Ativan 1 MG Oral Tablet Refills: 0 Active Melatonin (1 source) Melatonin TABS Refills: 0 Active Metamucil Fiber PACK (1 source) Metamucil Fiber PACK Refills: 0 Active Problems Active Problems Problem Classification Problem Date Documented Da te Episodic/Chronic Anal and rectal conditions (1 source) Rectal prolapse; Translations: [Rectal prolapse] Episodic Screening and history of mental health and substance abuse codes (1 source) H/O: anxiety state; Translations: [History of anxiety] Episodic Past or Other Problems Problem Classification Problem Date Documented Da te Episodic/Chronic NEGATED: Highlighted row has not occurred!Residual codes; unclassified (1 source) Disease Episodic Results Test Name Value Interpretation Reference Range Facil ity Vital Signs Date Time Vital Sign Value Performing Clinician Faci lity 11-26-2018 11:39-0400 Body Temperature 98 [degF] Eleanor Fierro [facility]-Pjxkwh[facility]-Gkyxcrc 2100 Work Phone: 11-26-2018 11:39-0400 BP Diastolic 87 mm[Hg] Eleanor Fierro PZ-Fjpalzy-Cmzifoc 2100 Work Phone: 11-26-2018 11:39-0400 BP Systolic 152 mm[Hg] Eleanor Fierro VQ-Ribrkxb-Iuxlmlj 2100 Work Phone: 11-26-2018 11:39-0400 Height 165.1 cm Eleanor Fierro [facility]-Hezxknu[facility]Dmkg[facility] 2100 Work Phone: 11-26-2018 11:39-0400 Pulse (Heart Rate) 84 /min Eleanor Fierro RZ-Vpybmlr-Ovxhrdb 2099 Work Phone: 11-26-2018 11:39-0400 1 1 Eleanor Fierro CV-Pqmscbg-Beqwyzj 2099 Work Phone: Procedures Date Procedure Procedure Detail Performing Clinician section Eleanor Hebert Social History Date Type Detail Facility NEGATED: Highlighted row - Never smoker [facility] 2099 Work Phone: Functional Status Date Assessment Result Facility NEGATED: Highlighted row Functional performance Functional status health issues are not documented Disease [facility]-Dvfokdk-Uwrdoea 2099 Work Phone: Mental Status Date Assessment Result Facility NEGATED: Highlighted row Cognitive function [Interpretation] Cognitive status health issues are not documented Disease EU-Ejgwhqs-Ioqcvtv 2099 Work Phone: Family History No Family History Records Found Mother Name Dates Details Family history of hypertensi on(V17.49, Z82.49) Status:Active Family history of degenerati ve disc disease(V17.89, Z82.69) Status:Active Father Name Dates Details Family history of non-Hodgki n's lymphoma(V16.7, Z80.7) Status:Active Summary Purpose Advance Directives No Advanced Directives Records Found Additional Source Comments INFORMATION SOURCE (unrecogn ized section and content) FOR RECORDS PERTAINING TO PATIENTS WHO ARE OR HAVE BEEN ENROLLED IN A CHEMICAL DEPENDENCY/SUBSTANCEABUSE PROGRAM, SOME INFORMATION MAY BE OMITTED. This clinical summary was aggregated from multiple sources. Caution should be exercised in using it in the provision of clinical care. This summary normalizes information from multiple sources, and as a consequence, information in this document may materially change the coding, format and clinical context of patient data. In addition, data may be omitted in some cases. CLINICAL DECISIONS SHOULD BE BASED ON THE PRIMARY CLINICAL RECORDS. [facility] [employer] [facility]. provides no warranty or guarantee of the accuracy or completeness of information in this document.
[2023-07-17 12:18] LABS: Absolute Lymphocyte Count 1.43 X10^3/uL (0.83-4.51); Absolute Neutrophil Count 2.7 X10^3/uL (2.0-7.7); Basophil# 0.05 X10^3/uL; Eosinophil# 0.12 X10^3/uL; Eosinophils% 2.5 % (0-5); Hemoglobin 12.9 g/dL (12.0-15.0); Lymphocyte # 1.43 X10^3/ul (0.83-4.51); Lymphocyte % 29.8 % (19-41); Mean Corp Hgb Conc 31.5 g/dL (32-36); Mean Corpuscular Hgb 30.2 pg (27.0-32.0); Mean Platelet Vol. 9.8 fl (6.2-12.0); Monocyte# 0.45 X10^3/uL; Monocyte% 9.4 % (0-10); NRBC Flagged by Analyzer 0 % (0-5); Neutrophil # 2.74 X10^3/uL (2.7-7.7); Neutrophil % 57.1 % (47-70); Platelet Count 263 K/mm3 (150-450); RBC Distribution Width CV 12.5 % (11.6-14.6); RBC Distribution Width SD 44.6 fl (35.1-43.9); Red Blood Count 4.27 M/mm3 (4.2-5.4); White Blood Count 4.8 K/mm3 (4.4-11.0)
[2023-07-17 12:24] LABS: Erythrocyte Sedimentation Rate 14 mm/hr (0-30)
[2023-07-17 12:42] LABS: Vitamin D,25 Hydroxy 53.1 ng/mL
[2023-07-17 12:43] LABS: PTHIN 52.5 pg/mL (18.4-80.1)
[2023-07-17 13:05] LABS: ALB/GLOB Ratio 0.9 RATIO (0.9-2.4); AST(SGOT) 22 U/L (15-37); Alanine Aminotransfer ALT/SGPT 18 U/L (13-56); Albumin, Serum 3.4 g/dL (3.2-5.0); Alkaline Phosphatase 55 U/L (45-117); Anion Gap 6 (5-15); BUN 17 mg/dL (7-18); BUN/Creat Ratio 19.1 RATIO (10-20); CRP < 2.90 mg/L (0.0-3.0); Calcium,Total 8.6 mg/dL (8.5-10.1); Chloride 111 mmol/L (98-107); Cholesterol 211 mg/dL (200); Creatinine, Serum 0.89 mg/dL (0.55-1.02); EST Glomerular Filtration Rate 68 mL/min (>60); Est Glom Filt Rate - Afr Amer 82 mL/min (>60); Globulin 3.6 g/dL (2.2-4.2); Glucose 84 mg/dL (74-106); High Density Lipoprotein 72 mg/dL; Potassium 4.2 mmol/L (3.5-5.1); Rheumatoid Factor < 10.0 IU/mL (<15); Sodium Level 142 mmol/L (136-145); Thyroid Stim Hormone (TSH) 2.63 uIU/mL (0.358-3.74); Triglycerides 107 mg/dL; Very Low Density Lipoprotein 21 mg/dL (5-40)
[2023-07-18 11:08] LABS: ANTINUCLEAR ANTIBODIES DIRECT Negative (Negative)
== END | disposition home or self-care (01) ==
LOC: MFPLAB 10:19
PROVIDERS: PCP Family Medicine; Visit Provider Family Medicine
DX: L43.9 Lichen planus, unspecified (principal); E78.5 Hyperlipidemia, unspecified; M81.0 Age-related osteoporosis without current pathological fracture
CPT/HCPCS: 36415; 80053; 80061; 82306; 83970; 84443; 85025; 85652; 86038; 86140; 86431

== ENCOUNTER 2023-09-17 11:00 | Outpatient (RCR) | payer MEDICARE, OTHER, SELFPAY ==
--- NOTE | 2023-07-30 13:56 | HP.PTEVAL_ITS ---
Patient's Visit Information Visit Information Visit Information: ROBERT MACIAS is a 68 year old F referred to Physical Therapy by WILLOW KAUR with a diagnosis of Lumbar disc displacement, cervical radiculaopathy. Date of Evaluation: 07/30/23 Physical Therapist: Manfred Layne, JUSTICET, OCS, CSCS Visit Plan Frequency: 2x /Week Duration: 4-6 Weeks Plan: 2x/week for 4-6 for 1. neck ROM, stretching and isometric strength, STM as helpful 2. teach general gy based fitness for core, LE strength , postural strength, LB ROM yoga stretches and WB ex for OP. Progress to [employer] program. Subjective Subjective: Had lumbar discectomy one year ago due to sciatica and difficulty walking and it helped. It helped 80%. Had some lingering pain with OP since then in LB but not bad. Has neck problems with pain over the last 10 yrs. Has had injections and recently in neck by Dr. Holm a month ago and helped a little. Pain is in neck and up to 10 with sleeping position or how she moves or how she turns or how she lifts.On good days it is 3/10. Constant pain. R arm symptoms to finger tips described as numbness and tingling. Sleeping is hard to get comfortable. Has flexeril but does not take. 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 basic ADLs are getting done. No hobbies: likes to walk but avoids due to pain. Likes photography. No regular exercises, has ellipitical, has rower. Pain neck pain: Pain Intensity (Out of 10): 3 Pain Intensity Range: 3 and 10 LBP: Pain Intensity (Out of 10): 2 Pain Intensity Range: 5 Objective Objective: Walks into PT I, trasnfers bed and chair I, steps reciprocal with one rail. good balance. Tender to touch in UT and neck paraspinals B gently. Not in Lumbar paraspinals. LB AROM ext painful, flexion tight and min limits, SB tight contralaterally. cervical aROM 40 ext with pain, mod limited retraction with pain centrally, SB 12 B with contralateral pain, rottation 44 degrees and contralaterally painful. UE AROM and LE AROM WFL, reflexes 2/3 patella adn achilles and bi and tri Sensation WNL UE adn LE. strength: no myotomal problems in UE or LE but instability obvious in hips. Core strength at 3+ LE strength hips 3, knees 4-, ankles 4- - cs compression - slump and - SLR Balance/Special Test Scores Oswestry Neck Score: 21 Goals Goal 1:: I appropriate [employer] based fitness for OP, LB, core, overall body and HEP for neck ROM Goal Time Frame: 4-6 Weeks Goal 2:: Pt feel 75% better with pain at 2/10 at worst Goal Time Frame: 4-6 Weeks Goal 3:: Take care of grandchild without increased pain after Goal Time Frame: 4-6 Weeks Goal 4:: oswestry neck 5 or better Goal Time Frame: 4-6 Weeks Goal 5:: neck ROM 60 rotation and 50 ext without pain to facilitate turning head in car without pain. Goal Time Frame: 4-6 Weeks Rehabilitation Potential Physical Therapy Diagnosis: weakness and ROM deficits and poor management of degeneration of spine. Rehabilitation Potential: Fair Anticipated Interventions Patient/Client Instruction: Educate patient on: Condition For the Purpose of:: To decrease pain, To decrease swelling/inflammation, To improve nutrient delivery to tissue, To improve muscle performance and motor function, To increase tolerance to activity/condition/position and To improve ability of physical actions for home/community/work/leisure Therapeutic Exercise to Include: Strength training, Flexibilty training, Gait and locomotor training, Passive ROM and Active ROM For the Purpose of:: To decrease pain, To increase ROM, To improve nutrient delivery to tissue, To improve muscle performance and motor function, To increase tolerance to activity/condition/position and To improve ability of physical actions for home/community/work/leisure Manual Therapy Techniques to Include: Passive ROM and Soft tissue mobilization For the Purpose of:: To decrease pain, To increase ROM and To improve nutrient delivery to tissue Text: Thank you for the opportunity to evaluate your patient. For Medicare and Medicare HMO plans, please review the plan of care and approve it. It will need to be FAXED BACK to us at [phone] for Medicare purposes. For Medicare only, by signing this I certify the plan of care. Please let me know if there are questions or concerns regarding this plan of care. Physician Signature: Date:
--- NOTE | 2023-09-17 11:46 | HP.PTDCSUM ---
Discharge Summary D/C summary: It has been my pleasure to treat ROBERT MACIAS referred by WILLOW KAUR, with the diagnosis of Lumbar disc displacement, cervical radiculaopathy for a total of 13 visit(s). Discharge Date: 09/17/23 Please see the following information for a summary of their discharge status. Subjective Subjective: ROM is better. Pain is less but not gone. 3/10 this week. No f/u scheduled with doctor not yet. Surgery not ready yet. No f/u scheduled with Dr. Holm. Will continue gym workout on own. Pain neck pain: Pain Intensity (Out of 10): 3 LBP: Pain Intensity (Out of 10): 3 Overall Improvement % Improvement: 70 Objective Objective/Function: ROM...much improved.68 R rotation, 65 L rotation and 60 B rotation Posture is better but still slightly forward head. Confident that she can keep ex going on her own at [employer] 3x/week and will continue stretches and ROm at home. Goals Goal 1:: I appropriate [employer] based fitness for OP, LB, core, overall body and HEP for neck ROM Goal Progress: Goal Met Goal 2:: Pt feel 75% better with pain at 2/10 at worst Goal Progress: 70% Goal 3:: Take care of grandchild without increased pain after Goal Progress: Progressing Goal 4:: oswestry neck 5 or better Goal Progress: Not Progressing Goal 5:: neck ROM 60 rotation and 50 ext without pain to facilitate turning head in car without pain. Goal Progress: Goal Met Plan Plan: d/c D/C Information d/c sentence: If there are questions or concerns regarding this patient's physical therapy, please feel free to call me at [phone]. Thank you for the referral of this patient. Sincerely, Manfred Layne, DPT, OCS, CSCS Balance/Gait/Functional tests Balance/Special Test Scores Oswestry Neck Score: 17 Improvement % Improvement: 70
== END 2023-09-17 19:00 | disposition home or self-care (01) ==
LOC: PT 11:00
PROVIDERS: PCP Family Medicine
DX: M51.26 Other intervertebral disc displacement, lumbar region (principal); M54.12 Radiculopathy, cervical region
CPT/HCPCS: 97110; 97140; 97162; 97530

== ENCOUNTER → 2023-12-03 | Outpatient (CLI) | payer MEDICARE, OTHER, SELFPAY ==
[2023-12-05 13:08] LABS: SJOGREN'S Anti-SS-A test < 0.2 AI (0.0-0.9); SJOGREN'S Anti-SS-B test < 0.2 AI (0.0-0.9)
== END | disposition home or self-care (01) ==
LOC: MFPLAB 11:31
PROVIDERS: PCP Family Medicine; Visit Provider Family Medicine
DX: L43.9 Lichen planus, unspecified (principal)
CPT/HCPCS: 36415; 86235

== ENCOUNTER 2023-12-12 10:56 | Outpatient (CLI) | payer MEDICARE, OTHER, SELFPAY ==
[2023-12-12 11:09] VITALS: BP 138/69; PULSE 68; RESP 16; TEMP 36.4; O2SAT 98; BMI 26.3
[2023-12-12] MEDS: 0.9% NaCl Peripheral Flush Adult/Peds IV (11:20)
[2023-12-12] MEDS: Zoledronic Acid 5 MG 100 ML 300 MG IV (11:20)
[2023-12-12 11:46] VITALS: BP 133/64; PULSE 65; RESP 16; O2SAT 98
== END 2023-12-12 23:59 | disposition home or self-care (01) ==
LOC: MEDOUTP 10:56
PROVIDERS: PCP Family Medicine; Referring Provider Internal Medicine Endocrinology, Diabetes & Metabolism; Visit Provider Internal Medicine Endocrinology, Diabetes & Metabolism
DX: M81.0 Age-related osteoporosis without current pathological fracture (principal)
CPT/HCPCS: 96365; A4216; J3489

== ENCOUNTER → 2024-03-17 | Outpatient (CLI) | payer MEDICARE, OTHER, SELFPAY ==
--- NOTE | 2024-03-17 10:51 | BI_ITS ---
MAMMOGRAPHY - BILATERAL SCREENING REASON FOR EXAM: Female, 68 years old. Routine annual screening examination. PERTINENT HISTORY: Aunt with breast cancer. TECHNIQUE: Digital bilateral breast jason (3D mammographic acquisition) in the CC and MLO projections. 2-D mediolateral oblique (MLO) and craniocaudad (CC) views of both breasts were obtained. CAD: Full Field Digital Mammography with Computer Added Detection was performed. COMPARISON: Comparison is made with prior study March 14, 2023. FINDINGS: Breast Composition: There are scattered areas of fibroglandular density. There are no dominant masses or suspicious calcifications. No other significant abnormalities are identified. There has been no significant change since the prior study. BI/SCRN MAMM (CAD)W/JASON BILAT IMPRESSION: Stable bilateral screening mammogram. Yearly follow-up mammogram recommended. (A) ASSESSMENT CATEGORY: BIRADS Category 1: Negative. A letter regarding these results will be sent to the patient by the facility within 30 days. Approximately 10% of breast cancers are not detected by mammography. A normal mammogram should not delay biopsy of a clinically suspicious abnormality. [id number] Electronically Signed: Juan Pablo Lucas MD at 12:10 EDT ,
== END | disposition home or self-care (01) ==
LOC: OPBI 10:49
PROVIDERS: PCP Family Medicine; Referring Provider Family Medicine; Visit Provider Family Medicine
DX: Z12.31 Encounter for screening mammogram for malignant neoplasm of breast (principal)
CPT/HCPCS: 77063; 77067

== ENCOUNTER → 2024-10-07 | Outpatient (CLI) | payer MEDICARE, OTHER, SELFPAY ==
[2024-10-07 10:30] LABS: Ionized Calcium Order ORDER TUBE
[2024-10-07 11:21] LABS: PTHIN 33 pg/mL (11-61)
[2024-10-07 12:03] LABS: Cholesterol 196 mg/dL (<=200); High Density Lipoprotein 71 mg/dL; Low Density Lipoprotein Calc. 107 mg/dL; Triglycerides 91 mg/dL; Very Low Density Lipoprotein 18 mg/dL (5-40); cholesterol:hdl ratio screen 2.77
[2024-10-07 12:06] LABS: Ionized Calcium 1.31 mmol/L (1.09-1.30)
[2024-10-07 12:26] LABS: ALB/GLOB Ratio 1.4 RATIO (0.9-2.4); AST(SGOT) 21 U/L (<=31); Alanine Aminotransfer ALT/SGPT 15 U/L (<=34); Albumin, Serum 4.1 g/dL (3.4-4.8); Alkaline Phosphatase 56 U/L (35-104); Anion Gap 10 (5-15); BUN 17 mg/dL (4-19); BUN/Creat Ratio 21.6 RATIO (10-20); Calcium,Total 9.7 mg/dL (7.6-11.0); Carbon Dioxide 24.4 mmol/L (21.0-32.0); Chloride 104 mmol/L (98-108); Creatinine, Serum 0.76 mg/dL (0.70-1.20); EST Glomerular Filtration Rate 85 (>60); Glucose 82 mg/dL (70-99); Magnesium 2.1 mg/dL (1.5-2.2); Potassium 4.4 mmol/L (3.3-5.1); Protein, Total 7.1 g/dL (5.9-8.4); Sodium Level 138 mmol/L (133-145); Total Bilirubin 0.39 mg/dL (0.00-1.30)
== END | disposition home or self-care (01) ==
LOC: MFPLAB 09:25
PROVIDERS: PCP Family Medicine; Referring Provider Family Medicine; Visit Provider Family Medicine
DX: M81.0 Age-related osteoporosis without current pathological fracture (principal); E78.5 Hyperlipidemia, unspecified
CPT/HCPCS: 36415; 80053; 80061; 82306; 82330; 83735; 83970; 84443

== ENCOUNTER → 2024-10-26 | Outpatient (CLI) | payer MEDICARE, OTHER, SELFPAY ==
--- NOTE | 2024-10-26 09:55 | BD_ITS ---
PROCEDURE: DEXA BONE DENSITY STUDY 10/26/2024 REASON FOR EXAM: None provided. TECHNIQUE: DXA scan of the lumbar spine and bilateral hips, using Hologic Horizon W. REFERENCE LINKS: ISCD Adult Positions COMPARISON: None FINDINGS: LUMBAR SPINE: Bone mineral denisty, L1-L4: 0.819 g/cm??? T-score: -2.1 LEFT FEMORAL NECK: Bone mineral denisty: 0.542 g/cm??? T-score: -2.8 LEFT TOTAL HIP: Bone mineral denisty: 0.686 g/cm??? T-score: -2.1 RIGHT FEMORAL NECK: Bone mineral denisty: 0.604 g/cm??? T-score: -2.2 RIGHT TOTAL HIP: Bone mineral denisty: 0.705 g/cm??? T-score: -1.9 FRAX*: 10 Year Probability of Fracture: Major Osteoporotic Fracture(1): 15.0% Hip Fracture(2): 3.6% *FRAX is a trademark of the [employer]'s [employer] for Metabolic Bone Disease, World Health Organization (WHO) Collaborating [employer]. 1-Major Osteoporotic Fracture: Clinical Spine, Forearm, Hip or Shoulder. 2-The 10-year probability of fracture may be lower than reported if the patient has received treatment. The National Osteoporosis Foundation recommends that medical therapy be considered in postmenopausal women and men, age 50 and older, with a: * hip or vertebral fracture * T-score less than or equal to -2.5 in the spine or hip * T-score between -1.0 and -2.5 and FRAX equal to or less than 3 percent for hip fracture or equal to or less than 20 percent for major osteoporotic fracture. World Health Organization criteria for BMD interpretation classify patients as Normal (T-score at or above -1.0), Osteopenic (T-score between -1.0 and -2.5), or Osteoporotic (T-score at or below -2.5). BD/Dexa Bone Density Study IMPRESSION: 1. Osteoporosis. 2. No prior exams are available for comparison. 3. Additional description as above. Reading Location: [id number]
== END | disposition home or self-care (01) ==
PROVIDERS: PCP Family Medicine; Referring Provider Family Medicine; Visit Provider Family Medicine
DX: Z00.00 Encounter for general adult medical examination without abnormal findings (principal); M81.0 Age-related osteoporosis without current pathological fracture; Z78.0 Asymptomatic menopausal state
CPT/HCPCS: 77080

== ENCOUNTER 2024-12-16 13:55 | Outpatient (CLI) | payer MEDICARE, OTHER, SELFPAY ==
[2024-12-16 14:03] VITALS: BP 142/65; PULSE 73; RESP 16; TEMP 35.8; O2SAT 97
[2024-12-16] MEDS: 0.9% NaCl IVPB Med Flush (100mL) 15 ML IV (14:22)
[2024-12-16] MEDS: Zoledronic Acid 5 MG 100 ML 300 MG IV (14:22)
[2024-12-16 14:58] VITALS: BP 135/65; RESP 16; TEMP 36.1
== END 2024-12-16 23:59 | disposition home or self-care (01) ==
LOC: MEDOUTP 13:57
PROVIDERS: PCP Family Medicine; Referring Provider Physician Assistant Medical; Visit Provider Physician Assistant Medical
DX: M81.0 Age-related osteoporosis without current pathological fracture (principal)
CPT/HCPCS: 96365; A4216; J3489

== ENCOUNTER → 2025-03-16 | Outpatient (CLI) | payer MEDICARE, OTHER, SELFPAY | END | disposition home or self-care (01) | LOC: MFPLAB 16:38 → LABSPEC 16:40 | PROVIDERS: PCP Family Medicine; Referring Provider Family Medicine; Visit Provider Family Medicine | DX: N39.0 Urinary tract infection, site not specified (principal) | CPT/HCPCS: 87077; 87086; 87088; 87186 ==

== ENCOUNTER → 2025-03-30 | Outpatient (CLI) | payer MEDICARE, OTHER, SELFPAY ==
--- NOTE | 2025-03-30 10:51 | BI_ITS ---
EXAM: SCRN MAMM (CAD)W/JASON BILAT DATE: 03/30/2025 CLINICAL HISTORY: F, Age 69 y/o , SCREENING Aunt with breast cancer. TECHNIQUE: Procedure Code: [id number] Modality: MG Procedure: SCRN MAMM (CAD)W/JASON BILAT COMPARISON: Prior exam(s) dated March 17, 2024.. FINDINGS: TISSUE DENSITY: There are scattered areas of fibroglandular density. Bilateral Breast Mammographic Findings: No significant masses, calcifications or other abnormalities are identified. Stable small benign-appearing bilateral axillary lymph nodes. No suspicious masses, areas of developing architectural distortion, or suspicious calcifications. There has been no significant interval change. BI/SCRN MAMM (CAD)W/JASON BILAT IMPRESSION: Stable bilateral screening mammogram. OVERALL FINAL ASSESSMENT BI-RADS 2: BENIGN RECOMMENDATION: Routine annual follow-up in 1 Year A letter with findings and recommendations will be mailed to the patient. Reading Location: [facility]
== END | disposition home or self-care (01) ==
LOC: OPBI 10:50
PROVIDERS: PCP Family Medicine; Referring Provider Family Medicine; Visit Provider Family Medicine
DX: Z12.31 Encounter for screening mammogram for malignant neoplasm of breast (principal); Z80.3 Family history of malignant neoplasm of breast
CPT/HCPCS: 77063; 77067

== ENCOUNTER → 2025-04-27 | Outpatient (CLI) | payer MEDICARE, OTHER, SELFPAY | END | disposition home or self-care (01) | LOC: US 15:40 | PROVIDERS: PCP Family Medicine; Referring Provider Urology; Visit Provider Urology | DX: N39.0 Urinary tract infection, site not specified (principal) | CPT/HCPCS: 76770 ==

== ENCOUNTER → 2025-05-12 | Outpatient (CLI) | payer MEDICARE, OTHER, SELFPAY | END | disposition home or self-care (01) | LOC: CT 16:20 | PROVIDERS: PCP Family Medicine; Referring Provider Urology; Visit Provider Urology | DX: N20.0 Calculus of kidney (principal); N39.0 Urinary tract infection, site not specified | CPT/HCPCS: 74176 ==

== ENCOUNTER → 2025-05-18 | Outpatient (CLI) | payer MEDICARE, OTHER, SELFPAY ==
[2025-05-18 14:20] LABS: Hematocrit 41.0 % (37-47); Hemoglobin 13.4 g/dL (12.0-15.0); Immature Granulocytes Count 0.030 X10^3/uL (0.0-0.0); Mean Corp Hgb Conc 32.7 g/dL (32-36); Mean Corpuscular Volume 92.3 fL (81-99); Mean Platelet Vol. 9.8 fl (6.2-12.0); NRBC Flagged by Analyzer 0 % (0-5); Platelet Count 290 K/mm3 (150-450); RBC Distribution Width CV 12.4 % (11.6-14.6); RBC Distribution Width SD 41.9 fl (35.1-43.9); Red Blood Count 4.44 M/mm3 (4.2-5.4); White Blood Count 6.6 K/mm3 (4.4-11.0)
[2025-05-18 14:38] LABS: AST(SGOT) 30 U/L (<=31); Alanine Aminotransfer ALT/SGPT 23 U/L (<=34); Albumin, Serum 4.2 g/dL (3.4-4.8); Alkaline Phosphatase 54 U/L (35-104); Anion Gap 11 (5-15); BUN 17 mg/dL (4-19); BUN/Creat Ratio 21.7 RATIO (10-20); Calcium,Total 9.1 mg/dL (7.6-11.0); Carbon Dioxide 21.6 mmol/L (21.0-32.0); Chloride 104 mmol/L (98-108); Globulin 3.0 g/dL (2.2-4.2); Glucose 70 mg/dL (70-99); Potassium 4.2 mmol/L (3.3-5.1)
[2025-05-23 08:08] LABS: Red Blood Cell Count Test/G6PD 4.50 x10E6/uL (3.77-5.28)
== END | disposition home or self-care (01) ==
LOC: MFPLAB 10:06
PROVIDERS: PCP Family Medicine
DX: K12.39 Other oral mucositis (ulcerative) (principal)
CPT/HCPCS: 36415; 80053; 82955; 85025

== ENCOUNTER 2025-05-26 07:57 | Day surgery (SDC) | payer MEDICARE, OTHER, SELFPAY ==
[2025-05-26] VITALS (8 sets, daily range): BP systolic 102–136; BP diastolic 58–76; PULSE 63–72; RESP 16; TEMP 36.1–36.6; O2SAT 92–97; BMI 27.4
--- NOTE | 2025-05-26 08:22 | HP.PCM_ITS ---
History and Physical
--- NOTE | 2025-05-26 08:22 | PCM.HP.BLA ---
History and Physical Date of Admission: 05/26/25 Date of Service: 05/18/25 MR#: [id number] Acct: [id number] Name: ROBERT MACIAS Rep #: [id number] : 1955 Provider: Dr. 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 Accompanied by: self Is patient in pain?: Yes (bACK PAIN ) Pain scale (1-10): 7 Allergies No Known Allergies Allergy (Verified 05/18/25 11:29) Medications ?Medication ?Instructions ?Recorded ?Confirmed ?Type escitalopram oxalate 10 mg tablet 10 mg PO DAILY 11/05/18 05/18/25 History (Lexapro) calcium carbonate (Calcium 600) 600 mg PO BID 08/23/22 05/18/25 History gabapentin 600 mg tablet 600 mg PO DAILY 08/23/22 05/18/25 History lorazepam 2 mg tablet (Ativan) 2 mg PO QHS 08/23/22 05/18/25 History melatonin 5 mg capsule 5 mg PO DAILY 08/23/22 05/18/25 History meloxicam 15 mg tablet 15 mg PO DAILY 08/23/22 05/18/25 History ascorbate calcium (vitamin C) 500 500 mg PO QDAY 04/20/25 05/18/25 History mg tablet betamethasone dipropionate 0.05 % applic topical 04/20/25 05/18/25 History topical cream estradiol 0.01% (0.1 mg/gram) 1 g vaginal 3XW 3 months #42.5 04/20/25 05/18/25 Rx vaginal cream grams clobetasol 0.05 % topical ointment 1 applic topical BID #60 grams 05/18/25 05/18/25 Rx Have you fallen in the past year?: No Nurse's Note: low back pain and vaginal itching from lichen. estrogen cream causing breast tenderness. [facility] Medical History TMJ click Chronic headaches UTI (urinary tract infection) Back problem Arthritis Lichen sclerosus Lichen planus Anxiety Asthma Osteoporosis Inflammation Neuropathy Spinal stenosis Degenerative disc disease History of endometriosis IBS (irritable bowel syndrome) Headaches, cluster Surgical History Posterior lumbar disc prolapse History of uterine suspension procedure H/O section Family History Daughter Spina bifida Diabetes trauma induced Grandmother Leukemia Father Cancer non hodgkins lymphoma Hypertension Sister Autoimmune disorder sjogrens disease Myocardial infarction, Onset Age: 52 Aunt Breast cancer Brother Myocardial infarction, Onset Age: 48 Mother Hypertension Osteoporosis Other Arthritis Non-Hodgkins lymphoma Social History household members: spouse Smoking Status: Former smoker quit date: 07/21/77 alcohol intake: current alcohol intake frequency: holidays/special occasions only details: social substance use type: does not use caffeine: Yes what type of physical activity do you participate in: walking and aerobics frequency: 3-4 times per week seatbelt use: always do you feel safe at home: Yes additional social history: - Steve [facility] Urology Chief Complaint: cysto and pelvic Details: ROBERT MACIAS, is a 70 F. She is here for cystoscopy and pelvic exam today. She has no sign of acute urinary tract infection today. She denies hematuria. Questions regarding the procedure were answered and she gives consent to proceed. She reports that the estrogen cream is causing some breast tenderness and we discussed decreasing it to twice weekly. She did see gynecology yesterday and clobetasol was prescribed for her lichen in the vulva. ROS Const Constitutional: No chills, fatigue, fever(s), headache(s), night sweats, weakness, weight change, abnormal sleep pattern or change in appetite Eyes Eyes: No change in vision ENT ENT: No headache(s) or dry mouth Resp Respiratory: No cough, chest congestion, shortness of breath or wheezing Cardio Cardiology: Positive for other (No chest pain.); No shortness of breath, irregular heart rhythm or lightheadedness Gastro GI: Positive for abdominal pain, constipation, diarrhea and other (No nausea.); No change in bowel habits or vomiting Musc Musculoskeletal: Positive for back pain (Chronic); No abnormal gait Skin Skin: Positive for lesions, itchy eyes, rash and skin ulcer; No yellowing of the eye Neuro Neurology: No abnormal gait, confusion, dizziness, weakness, headache(s) or memory loss Psych Psychiatric: No abnormal sleep pattern, No change in appetite, No confusion and No memory loss Endo Endocrine: No fatigue, increased thirst/drinking or weight change Aller/Imm Allergy/Immunologic: Positive for itchy eyes; No wheezing Reg/Lymp Hematologic/Lymphatic: No easy bleeding, easy bruising or enlarged lymph nodes Exam Const General: cooperative, healthy appearing, comfortable and no acute distress [facility] Head: normocephalic and atraumatic Ears: hearing grossly normal bilaterally and external ears normal Nose: external nose normal Eyes General: appearance normal, both eyes and all related structures Neck Neck: normal visual inspection and trachea midline Chest Chest palpation & inspection: normal inspection of the chest Resp Effort & Inspection: normal respiratory effort, able to speak in complete sentences and symmetric chest movement Cardio Rate: regular rate GI Inspection: normal to inspection Palpation: soft and nontender General: No CVA tenderness External Female Exam: No normal appearance of the urethra (small meatus, too small to accommodate the cystoscope) and lesion (right labia minora 1cm pale area consistent with lichen sclerosis patch) Urethra: abnormal appearance of the urethra (small meatus, too small to accommodate the cystoscope) Speculum Exam - Vagina: vagina atrophic and no masses Bimanual Exam- Adnexa, other: normal and apex supported Recto-Vaginal: other (no stool in rectal vault) Pelvic Support: normal, no cystocele, no rectocele and apex supported Skin General: no rashes or lesions noted Neuro General: patient alert, patient awake, patient oriented x3 and CN's II-XI intact bilaterally Extrem General: normal to inspection Psych Appearance: grossly normal and well kempt Mental Status: mental status grossly normal Office Procedures Cystoscopy Procedure Completed: No Cystoscopy: The patient was placed into dorsal lithotomy position, and was cleaned in usual sterile fashion. The urethra was anesthetized with 2% lidocaine jelly. The urethra was too small to accommodate the cystoscope and the procedure was aborted. She declined to proceed with urethral dilation today, would prefer anesthesia. Results POC UA Auto w/o Microscopy Office Urine Color ? Last Edit by Dana Mitchell on 05/18/25 11:33 Office Urine Clarity ? Last Edit by Dana Mitchell on 05/18/25 11:33 Office Urine Glucose Negative Last Edit by Dana Mitchell on 05/18/25 11:33 Office Urine Ketones Negative Last Edit by Dana Mitchell on 05/18/25 11:33 Office Urine Bilirubin Negative Last Edit by Dana Mitchell on 05/18/25 11:33 Office Urine Urobilinogen 0.2 mg/dL Last Edit by Dana Mitchell on 05/18/25 11:33 Off Ur Spec [place] 1.010 Last Edit by Dana Mitchell on 05/18/25 11:33 Office Urine pH 6 Last Edit by Dana Mitchell on 05/18/25 11:33 Office Urine Protein Negative Last Edit by Dana Mitchell on 05/18/25 11:33 Office Urine Blood Negative Last Edit by Dana Mitchell on 05/18/25 11:33 Office Urine Blood Hemolyzed Negative Last Edit by Dana Mitchell on 05/18/25 11:33 Office Urine Nitrate Negative Last Edit by Dana Mitchell on 05/18/25 11:33 Off Ur Leukocytes Negatve Last Edit by Dana Mitchell on 05/18/25 11:33 Supplemental Info imaging normal Coding Level of Care Code Off vis,est,level 4 Diagnoses UTI (urinary tract infection) N39.0 Overactive bladder N32.81 Nocturia R35.1 Vaginal atrophy N95.2 Assessment and Plan Assessment and Plan (1) UTI (urinary tract infection): Status: Acute (2) Overactive bladder: Status: Acute (3) Nocturia: Status: Acute (4) Vaginal atrophy: Status: Acute Comment: estradiol cream/Dr Dockery Orders: Orders POC UA Auto w/o Microscopy Today N32.81 - Overactive bladder Cysto Today N39.0 - Urinary tract infection, site not specified Medications: New clobetasol 0.05% twice daily for 6 weeks, then as needed 1 applic topical BID 60 grams 3RF Plan clobetasol decrease estrogen cream to twice weekly due to breast tenderness continue infection prevention schedule urethral dilation with cystoscopy under anesthesia Clinical Quality Measures Falls Risk Screening/Assistive Devices Have you fallen in the past year?: No 05/18/25 1309 <Electronically signed by Madeline Dockery MD> Date Madeline Dockery MD
--- NOTE | 2025-05-26 08:23 | DCINST_ITS ---
Discharge Instructions
--- NOTE | 2025-05-26 08:23 | EX.PCM.DISCH ---
Discharge Instructions Diet Discharge Diet: No restrictions Activity Discharge Activity: Return to Normal Activity Dressing / Incision Call your doctor if your incision/area has: Continuous Slow Oozing, Sudden Increased Bleeding and Foul Smelling Discharge Call your doctor if you observe: Fever of 101 or Higher, Inability to urinate and Inability to have a bowel movement Follow Up Care Please Follow Up With: Madeline Dockery MD Test Results: Test results from this visit will be discussed in further detail at your follow-up appointment, if applicable. Discharge Plan Admission Attending Provider: Madeline Dockery Primary Care Provider: Jeromy Kruger Instructions Print Language: Cameroonian Discharge Orders/Prescriptions Prescriptions: Continued escitalopram oxalate [Lexapro] 10 mg tablet 10 mg PO DAILY calcium carbonate [Calcium 600] 600 mg calcium (1,500 mg) tablet 600 mg PO BID meloxicam 15 mg tablet 15 mg PO DAILY gabapentin 600 mg tablet 600 mg PO TID lorazepam [Ativan] 2 mg tablet 2 mg PO QHS melatonin 5 mg capsule 5 mg PO QHS ascorbate calcium (vitamin C) 500 mg tablet 500 mg PO QDAY clobetasol 0.05 % ointment 1 applic topical BID Qty: 60 3RF Rx Instructions: twice daily for 6 weeks, then as needed estradiol 0.01 % (0.1 mg/gram) cream 1 g vaginal .2xw betamethasone dipropionate 0.05 % cream 1 applic topical BID No Action cranberry 500 mg capsule 500 mg PO DAILY Rx Instructions: administer with a meal Probiotic 3 billion cell capsule 3,000 mmu cells PO DAILY Rx Instructions: administer with a meal Referrals / Follow Up: Jeromy Kruger MD [Primary Care Provider, Family Practice] Disposition Disposition (needs filled in before D/C Order can be placed): Home, Self Care
[2025-05-26] MEDS: Lactated Ringers 1,000 ML 15 ML IV (08:33)
--- NOTE | 2025-05-26 08:44 | PCM.PRE.AN2 ---
ASA Classification* ASA Classification ASA Classification: 2 (HTN, Asthma, anxiety ) Assessment & Plan Anesthesia* Anesthesia Assessment Anesthesia Assessment: Discussed sedation and/or anesthesia options, risks, benefits, and alternatives with patient/parents/legal guardian/POA. Questions invited. The patient/parents/legal guardian/POA seems to understand and agrees to proceed with anesthesia plan. Reviewed the physical assessment, medical history, allergy history and patient home medications list prior to surgery/procedure/anesthetic and documented any changes. Performed airway and anesthesia risk assessments. Anesthesia Type Anesthesia Type: MAC History Source History Obtained from:: Patient and Chart Anesthesia Focused Assessment* Temperature: 97.9 F Pulse Rate: 72 Blood Pressure: 136/76 Respiratory Rate: 16 Pulse Ox: 96 Oxygen Delivery Method: Room Air Airway Assessment Mouth opens: >3 cm Mallampati Score: II Teeth Condition: Intact Neck Range of motion (ROM): Full ROM Labs Anesthesia Preop lab: CBC WBC, (4.4-11.0) 6.6 K/mm3 05/18/25, 10:06 RBC, (4.2-5.4) 4.44 M/mm3 05/18/25, 10:06 Hgb, (12.0-15.0) 13.4 g/dL 05/18/25, 10:06 Hct, (37-47) 41.0 % 05/18/25, 10:06 Plt Count, (150-450) 290 K/mm3 05/18/25, 10:06 CHEMISTRY Potassium, (3.3-5.1) 4.2 mmol/L 05/18/25, 10:06 Sodium, (133-145) 137 mmol/L 05/18/25, 10:06 Magnesium, (1.5-2.2) 2.1 mg/dL 10/07/24, 09:28 BUN, (4-19) 17 mg/dL 05/18/25, 10:06 Creatinine, (0.70-1.20) 0.76 mg/dL 05/18/25, 10:06 Glucose, (70-99) 70 mg/dL 05/18/25, 10:06 TSH, (0.300-4.200) 2.440 uIU/mL 10/07/24, 09:28 COAG PT, (11.7-14.9) 13.4 SECONDS 06/19/22, 16:24 Pre-Assessment Diagnosis/Proposed Procedure Planned Operative Procedure(s): CYSTO URETHERAL DILATION Anesthesia History 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 When Was Last Pacemaker Check QUESTION #4 FULL TEXT: You/Your Family Experience fever (hyperthermia) with Anesthesia Last Oral Intake Last Oral intake: Last Oral Intake NPO since 22:30 05/26/25 08:25 Meds taken in AM with sips of water? 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 Female Yes 05/23/25 08:14 HX of Motion Sickness Yes 05/23/25 08:14 HX of N/V After Surgery No 05/23/25 08:14 Non-Smoker Yes 05/23/25 08:14 Duration of Surgery greater No 05/23/25 08:14 than 60 minutes Number of Risk Factors 3 05/23/25 08:14 PONV Score Moderate Risk 05/23/25 08:14 Height & Weight Height & Weight: Anesthesia: Height & Weight Height 5 ft 5 in 05/26/25 08:25 Weight: 74.843 kg 05/26/25 08:25 Body Mass Index (BMI) 27.4 05/26/25 08:25 Respiratory Assessment Respiratory Assessment - cattle shipper: Respiratory Tract Infection Hx - cattle shipper Hx Respiratory Tract Infection No 05/23/25 08:14 STOP Sleep Apnea STOP Sleep Apnea - cattle shipper: STOP Sleep Apnea - cattle shipper Hx Hypertension Yes: NO MEDS FOR MANY YRS 05/23/25 08:14 Hx Sleep Apnea No 05/23/25 08:14 CPAP BIPAP Do you snore loudly (louder No 05/23/25 08:14 than talking or can be heard Do you often feel tired/ No 05/23/25 08:14 fatigued/ sleepy during daytime? Has anyone observed you stop No 05/23/25 08:14 breathing during sleep? STOP Results Negative 05/23/25 08:14 QUESTION #5 FULL TEXT : Do you snore loudly (louder than talking or can be heard through closed doors)? Tobacco Use History Tobacco Use History - cattle shipper: Tobacco Use History - cattle shipper Tobacco Use Smoking Status Never smoker 05/23/25 08:14 Hx Tobacco Use No 05/23/25 08:14 Years Smoking Packs Smoked per Day Smoking Cessation Date was within the last 15 years Hx Smoking Cessation Date Hx Smoking Cessation Counseling Hematologic Medial History Hematologic Hx - cattle shipper: Hematologic Medical Hx - riveter automobile brakes Hx of Blood Transfusion No 05/23/25 08:14 Hx of Transfusion in last 3 No 05/23/25 08:14 Months Date of Last Transfusion (if within last 3 months) Ever experience any problems No 05/23/25 08:14 with transfusion(s)? Specify any problems Hx of Preganancy in last 3 No 05/23/25 08:14 Months Nurse Filling Out Transfusion DSCHRIBER 05/23/25 08:14 & Questions: Date: 05/23/25 05/23/25 08:14 Time: 08:15 05/23/25 08:14 Patient unable to answer at this time (ie. confused, unrespo /Reproduction History /Reproductive History - cattle shipper: /Reproductive Hx- cattle shipper Hx Now No 05/23/25 08:14 Gestational Age (in weeks): EDC: Hx Hx Para Hx Section SAB No 05/23/25 08:14 Does the father of the baby or his family experience fever w Father of the baby Malignant Hypertension history comment Active Medications Active Medications: Current Medications Generic Name Dose Route Start Last Admin Trade Name Freq PRN Reason Stop Dose Admin Cefazolin Sodium 2 gm/ Sodium 110 mls @ 200 mls/hr 05/26/25 09:30 Chloride IV 05/26/25 10:02 INTRAOP ONE Lactated Ringer's 1,000 mls @ 15 mls/hr 05/26/25 08:15 05/26/25 08:33 IV 15 mls/hr .Q48H DANDRE Administration PFSH Medical History (Updated 05/23/25 @ 08:23 by Edelmira Cade) Loss of hearing Wears glasses Wears contact lenses Post-menopausal Alcohol use Bladder disease Anemia Easy bruising Back pain Syncope Vertigo Non-smoker Asthma Shortness of breath on exertion History of pain when walking Hypertension History of stress test Arthritis Lichen sclerosus Lichen planus Anxiety Osteoporosis Neuropathy Spinal stenosis History of endometriosis IBS (irritable bowel syndrome) Home Medications ?Medication ?Instructions ?Recorded ?Last Taken ?Type escitalopram oxalate 10 mg tablet 10 mg PO DAILY 11/05/18 05/25/25 History (Lexapro) calcium carbonate (Calcium 600) 600 mg PO BID 08/23/22 05/25/25 History gabapentin 600 mg tablet 600 mg PO TID 08/23/22 05/25/25 History lorazepam 2 mg tablet (Ativan) 2 mg PO QHS 08/23/22 05/25/25 History melatonin 5 mg capsule 5 mg PO QHS 08/23/22 05/25/25 History meloxicam 15 mg tablet 15 mg PO DAILY 08/23/22 05/25/25 History ascorbate calcium (vitamin C) 500 500 mg PO QDAY 04/20/25 05/25/25 History mg tablet clobetasol 0.05 % topical ointment 1 applic topical BID #60 grams 05/18/25 05/25/25 Rx betamethasone dipropionate 0.05 % 1 applic topical BID 05/23/25 05/25/25 History topical cream estradiol 0.01% (0.1 mg/gram) 1 g vaginal .2xw 05/23/25 05/25/25 History vaginal cream cranberry 500 mg capsule 500 mg PO DAILY supplement 05/26/25 05/25/25 History lactobacillus combination no.4 3 3,000 mmu cells PO DAILY 05/26/25 Unknown History billion cell capsule (Probiotic) Allergy/AdvReac Type Severity Reaction Status Date / Time No Known Allergies Allergy Verified 05/26/25 08:21 Family History Daughter Spina bifida Diabetes trauma induced Grandmother Leukemia Father Cancer non hodgkins lymphoma Hypertension Sister Autoimmune disorder sjogrens disease Myocardial infarction, Onset Age: 52 Aunt Breast cancer Brother Myocardial infarction, Onset Age: 48 Mother Hypertension Osteoporosis Other Arthritis Non-Hodgkins lymphoma Surgical History (Updated 05/23/25 @ 08:23 by Edelmira Cade) Hx of colonoscopy Hx of lumbar discectomy History of uterine suspension procedure H/O section Social History household members: spouse Smoking Status: Former smoker quit date: 07/21/77 alcohol intake: current alcohol intake frequency: holidays/special occasions only details: social substance use type: does not use caffeine: Yes what type of physical activity do you participate in: walking and aerobics frequency: 3-4 times per week seatbelt use: always do you feel safe at home: Yes additional social history: - Steve Review of Systems (Anesthesia) ROS Narrative System reviewed and no additional complaints, except as documented. Physical Exam Const alert, oriented x3 and average body habitus Resp normal respiratory effort, normal air movement and clear to auscultation bilaterally Cardio regular rate, regular rhythm, no murmurs and diaphoretic
[2025-05-26] MEDS: Midazolam 2 MG/2 ML Syringe IV (10:36)
[2025-05-26] MEDS: Cefazolin 1 GM/5 ML Vial 2 GM IV (10:37)
[2025-05-26] MEDS: Lidocaine 1% (5 ml sdv) 5 ML Vial 4 ML IV (10:38)
[2025-05-26] MEDS: Lidocaine Jelly 2% 20 ML Syringe (URO-JET) 1 APPLIC (10:47)
[2025-05-26] MEDS: fentaNYL 100 MCG/2 ML Ampul IV (10:47)
--- NOTE | 2025-05-26 10:59 | POSTOP.ANE_ITS ---
Anesthesia: Postop Eval I
--- NOTE | 2025-05-26 10:59 | PCM.POST.ANE ---
Anesthesia: Postop Eval I Current Vital Signs Temperature: 97.6 F Pulse Rate: 70 Blood Pressure: 110/58 Respiratory Rate: 16 Pulse Ox: 97 Oxygen Delivery Method: Room Air Assessment Airway patent: Yes Spontaneous unlabored respirations: Yes Mental status: Awake and Calm nausea: No Vomiting: No Anesthesia Complication: No Fluid Hydration Crystalloid volume administer (ml): 600 Total IV fluid infused: 600 Progress Note Anesthesia document: Postop Eval 1 completed: Yes
--- NOTE | 2025-05-26 11:29 | POSTOPAN2_ITS ---
Anesthesia Postop Eval I Sum
--- NOTE | 2025-05-26 11:29 | PCM.POSTANE2 ---
Anesthesia Postop Eval I Sum Postop Eval Completion status Anesthesia document: Postop Eval 1 completed: Yes Anesthesia Postop Eval I Summary Anesthesia Postop Eval I Summary: Anesthesia Postop Eval I: Assessment Summary Airway patent Yes 05/26/25 10:59 POWER ELECTRONICS RESEARCH ENGINEER.[email or web address] Spontaneous unlabored Yes 05/26/25 10:59 POWER ELECTRONICS RESEARCH ENGINEER.YG respirations Mental status Awake,Calm 05/26/25 10:59 POWER ELECTRONICS RESEARCH ENGINEER.YG nausea No 05/26/25 10:59 POWER ELECTRONICS RESEARCH ENGINEER.YG Vomiting No 05/26/25 10:59 POWER ELECTRONICS RESEARCH ENGINEER.YG Anesthesia Postop Eval I: Fluid Summary Crystalloid volume administer 600 05/26/25 10:59 POWER ELECTRONICS RESEARCH ENGINEER.JENNIFEROBTejas (ml) Colloids volume administered ( ml) Blood Product volume administered (ml) Total IV fluid infused 600 05/26/25 10:59 POWER ELECTRONICS RESEARCH ENGINEER.YG Anesthesia Postop Eval I: Summary Notes Anesthesia Complication No 05/26/25 10:59 POWER ELECTRONICS RESEARCH ENGINEER.YG Anesthesia Complication Comment: Post-operative progress note Anesthesia: Postop Eval II Evaluation Mental status: Awake Pain Level: 0 nausea: No Vomiting: No Complications Anesthesia Complication: No
--- NOTE | 2025-05-27 12:58 | PCM.OPRPT ---
Urology Urology: [id number] Cystoscopy and Treatment Operative Report (Standard) Operative Information Date of Procedure: 05/26/25 Pre-Operative Diagnosis: Urethral stricture, urinary tract infection Post-Operative Diagnosis: Same Surgery/Procedure Performed: Urethral dilation, cystoscopy energy economist: No Type of Anesthesia: MAC RN Documented Start/Stop Times: Operation Date: 05/26/25 09:30 Case Time Into Pre-Op 05/26/25 08:06 Anesthesia Start 05/26/25 10:37 Into Room 05/26/25 10:37 Out of Pre-Op 05/26/25 10:37 Procedure Start 05/26/25 10:46 Procedure End 05/26/25 10:52 Anesthesia End 05/26/25 10:53 Out of Room 05/26/25 10:53 Into Recovery 05/26/25 10:56 Into Phase II Recovery 05/26/25 11:14 Out of Recovery 05/26/25 11:14 Out of Phase II 05/26/25 12:19 Procedure Start Time: 10:46 Procedure Stop Time: 10:52 Select all DRAINS/GRAFTS/IMPLANTS that apply: None Estimated Blood Loss: <5cc Specimen collected: No Description of surgery: The patient is here for dilation of her urethral stricture with cystoscopic evaluation of her bladder. Informed consent was obtained. She was taken to the operating room and placed on the operating room table. Anesthesia monitored the head, neck, airway, IV access and vital signs throughout the case once anesthesia was appropriately administered, she was placed into dorsolithotomy position was prepped and draped in usual sterile fashion. A Uro-Jet was injected into the urethra. The urethra was then dilated with female sounds starting with [address] up to 26 [place]. The cystoscope easily passed through the urethra into the urinary bladder. The bladder mucosa was visualized in its entirety revealing mild trabeculation. There was no mass, erythema, ulceration or foreign body. The ureters were located in the correct anatomic position and the area of the trigone. At this time the bladder was emptied and the cystoscope was removed. She was awakened and taken to the recovery room in good condition. There were no complications during the procedure. Surgical Findings: Urethra was dilated to 26 [place]i, bladder with mild trabeculation Complications Complications: No Admit VTE Documentation VTE Present on Admission: Yes VTE Mechan Device Prophylaxis: SCD's VTE Pharm Prophylaxis ordered?: No Reason prophylaxis not ordered: Treatment Not Indicated
== END 2025-05-26 12:19 | disposition home or self-care (01) ==
LOC: SDC 07:58 → AC 07:59
PROVIDERS: PCP Family Medicine; Referring Provider Urology; Visit Provider Urology
PROC: 0T7D8ZZ Dilation of Urethra, Via Natural or Artificial Opening Endoscopic (ICD-10-PCS; CPT 52281; principal; 2025-05-26 09:20)
DX: N35.92 Unspecified urethral stricture, female (principal); N39.0 Urinary tract infection, site not specified; Z87.891 Personal history of nicotine dependence; N32.89 Other specified disorders of bladder; N32.81 Overactive bladder; R35.1 Nocturia; J45.909 Unspecified asthma, uncomplicated; N95.2 Postmenopausal atrophic vaginitis; I10 Essential (primary) hypertension; Z79.899 Other long term (current) drug therapy
CPT/HCPCS: 52281; 00910; J2405